=== PATIENT | male | born 1970 | race Caucasian/White ===

== ENCOUNTER 2023-07-27 20:01 | Observation (INO) ==
--- OUTSIDE RECORDS SUMMARY | 2023-07-27 20:07 | External Medical Summary | Summary of Care ---
Author Name Unknown Organization [facility] Address [address] [place] [address] Phone [phone] Care Team Providers Care Labor Relations Teacher Name Role Phone Salas Ring MD Primary Care Provider + Reason for Visit * Reason Onset Date Comments Medication Refill 05/21/2023 Encounter Details Date Type Department Care Team (Late st Contact Info) Description 05/21/2023 Refill Family [facility] [address] [facility] [address] Salas Ring MD [address] [place] [address] Allergies No known active allergiesdocumented as of this encounter (statuses as of 05/21/2023) Medications Medication Sig Dispensed Refills Start Date End Date Status CENTRUM PO TABS one tablet daily 0 Act sergei Aspirin 81 MG Oral Tablet Chewable Take by mouth 1 Tablet in the morning. With food.. 100 Tablet 5 06/23/2021 Active hydrOXYzine HCl 25 MG Oral TabletIndications :ZO (generalized anxiety disorder) take 1 tablet by mouth three times a day if needed for anxiety 40 Tablet 2 04/09/2022 Active Triamcinolone Acetonide 0.1 % External Cream (Aristocort)Indic ations:Rash and nonspecific skin eruption Apply topically to affected area 2 times a day. To affected area. 80 g 3 05/09/2022 Active Additional Information Patient not taking.Reported on 09/03/2022 Colchicine 0.6 MG Oral Tablet (Colcrys)Indicati ons:Gout Two tablets at onset of gout attack, repeat one hour later if needed 12 Tablet 1 05/16/2022 Active Simvastatin 20 MG Oral Tablet (Zocor)Indication s:Dyslipidemia, goal LDL below 160 Take 1 Tablet by mouth at bedtime. 90 Tablet 3 07/06/2022 Active Meloxicam 7.5 MG Oral Tablet (Mobic)Indication s:Tophaceous gout Take 1 Tablet by mouth in the morning. For 1month for gout prevention. 30 Tablet 0 07/06/2022 Active predniSONE 20 MG Oral Tablet (Deltasone)Indica tions:Left elbow pain Take 3 tabs for 3 days, 2 tabs for 3 days, 1 tab for 3 days, 1/2 tab for 3 days 20 Tablet 0 09/03/2022 Active Escitalopram Oxalate 10 MG Oral Tablet (Lexapro)Indicati ons:ZO (generalized anxiety disorder) take 1 tablet by mouth every morning 30 Tablet 5 11/19/2022 Active Lisinopril 20 MG Oral Tablet (Prinivil)Indicat ions:HTN, goal below 130/80 Take 1 Tablet by mouth at bedtime. 90 Tablet 3 04/07/2023 Active amLODIPine Besylate 5 MG Oral Tablet (Norvasc) Take 1 Tablet by mouth in the morning. 100 Tablet 3 05/21/2023 Active amLODIPine Besylate 5 MG Oral Tablet (Norvasc) Take 1 Tablet by mouth in the morning. 100 Tablet 3 07/06/2022 4 Discontinue d(Refill) Allopurinol 100 MG Oral Tablet (Zyloprim)Indicat ions:Tophaceous gout take 2 tablet by mouth every morning 60 Tablet 5 12/20/2022 4 Discontinue d(Refill) documented as of this encounter (statuses as of 05/21/2023) Active Problems Problem Noted Date Diagnosed Date ZO (generalized anxiety disorder) 12/04/2021 Well adult exam 04/15/2014 Overview: 06/19 stress echo WNL. 03/20 colon+ tubular adenoma haritha 6y 2018-friend, suicide. Found body---started [employer] 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) 07/25/2020 12/25/2020 Overview: Feb 2020 Prediabetes 10/11/2019 07/12/2021 Overview: Per Prediabetes protocol Ganglion cyst 06/11/2012 12/25/2020 Overview: Right wrist Thoracic outlet syndrome 05/26/201207/2017 Carpal tunnel syndrome 04/30/201206/21 Overview: 04/29/12-EMG-left -mild HTN, goal below 130/80 06/21 Malaise and fatigue 09/03/19 18 documented as of this encounter (statuses as of 05/21/2023) Immunizations Name Administration Dates Next Due COVID-19 mRNA, LNP-s, No Pre serve, 2-Dose Series (Moderna) 06/29/2020 HEP A - Hepatitis A (Adult > 18 yrs) 12/06/2021 Hepatitis B, 20+ yrs 12/31/2021 Seasonal Influenza, PF, 6 M & above, IM , (FluLaval or Fluzone) 05/29/2021,01/28/2020 Seasonal Influenza, Quadrivalent, No Preserve, I M 01/24/2015 Seasonal Influenza, Split, IIV3, With Preserve, Inj 12/14/2011 TDAP (age 10 and older)(Boostrix) 04/17/2023,10/2012 Typhoid VICPs Parenteral, 2 years and above (Typhim ) 12/06/2021 Zoster Vaccine Recombinant (Shingrix) 09/28/2021 ,05/29/2021 documented as of this encounter Social History Tobacco Use Types Packs/Day Years Used Date Smoking Tobacco: Never Passive Smoke Exposure: Never Smokeless Tobacco: Former Chew Comments:quit 2005 Alcohol Use Standard Drinks/Week Comments Yes 0 (1 standard drink = 0.6 oz pur e alcohol) 6 pack on weekends PHQ-2 Answer Date Recorded PHQ Adult Total Score 0 07/06/2022 Hunger Vital Sign Answer Date Recorded Within the past 12 months, y ou worried that your food would run out before you got the money to buy more. Never true 07/07/19 23 Within the past 12 months, t he food you bought just didn't last and you didn't have money to get more. Never true 07/06/2022 Sex and Gender Information Value Date Recorded Sex Assigned at Male 07/25/2020 12:54 PM EDT Gender Identity Male 07/25/2020 12:54 PM EDT Sexual Orientation Straight 07/25/2020 12 :54 PM EDT Job Start Date Occupation Industry Not on file Not on file Not on file documented as of this encounter Miscellaneous Notes * Telephone Encounter - Salas Ring MD - 05/21/2023 10:44 PM EST Signed Prescriptions: Disp Refills amLODIPine Besylate 5 MG Oral Tablet (Norv*100 Ta*3 Sig: Take 1 Tablet by mouth in the morning. Authorizing Provider: SALAS RING * Telephone Encounter - Flaquita Stone LPN - 05/21/2023 8:21 AM ESTPending Prescriptions: Disp Refills amLODIPine Besylate 5 MG Oral Tablet (Norv*100 Ta*3 Sig: Take 1 Tablet by mouth in the morning. * Telephone Encounter - Lola Foy OSA - 05/21/2023 7:07 AM EST Did you pend patient's preferred pharmacy and medication before forwarding?yes Pharmacy: [id number] [facility] Pending Prescriptions: Disp Refills amLODIPine Besylate 5 MG Oral Tablet (Nor*100 Ta*3 Sig: Take 1 Tablet by mouth in the morning. Last Visit: 09/03/2022 (in office), 08/13/2021 (telemedicine) Next Visit: 07/09/2023 If no future appointments scheduled, and last appointment is greater than a year ago, please schedule patient for a follow-up appointment Last date the medication was ordered: 07.06.22 Is this request for a controlled substance?No 90 day refill request Urine Drug Screen:No results found for this or any previous visit. Patient Phone Numbers Labs: Lab Results Component Value Date/Time CREAT 1.07 08/08/2022 12:00 AM CREAT 1.2 09/29/2019 07:34 AM POTASSIUM 4.3 08/08/2022 12:00 AM POTASSIUM 4.4 09/29/2019 07:34 AM TSH 2.00 12/11/2020 12:00 AM TSH 3.39 06/11/2012 09:24 AM LDLCALC 56 06/23/2021 12:00 AM LDLCALC UNINTERPRETABLE RESULT 09/14/2018 10:46 AM LDLDIRECT 89 09/14/2018 10:46 AM ALT 32 06/23/2021 12:00 AM ALT 40 09/14/2018 10:46 AM HGBA1C 5.3 11/27/2020 12:00 AM HGBA1C 5.9 (H) 09/29/2019 07:34 AM documented in this encounter Plan of Treatment Upcoming Encounters Date Type Department Care Team (Late st Contact Info) Description 07/09/2023 10:00 AM EDT Office Visit Family Practice [facility] [address] [address] Salas Ring MD [address] [place] [address] Scheduled Procedures Name Priority Associated Diagnoses Date/Ti me COLONOSCOPY FLEXIBLE PROXIMA L DIAGNOSTIC Recall History of colonic polyps Health Maintenance Due Date Last Done Comments HIV Screening 1986 Hepatitis C Screening 1989 Hepatitis B (2 of 3 - 19+ 3-dose series) 01/28/2022 12/31/2021 Influenza Vaccine (FLU shot) (#1) 2022 05/29/2021, 01/28/2020, 01/24/2015, Additional history exists Depression Screening 07/07/2023 07/06/2022 GFR 08/09/2023 08/08/2022, 05/30, 11/27/2020, Additional history exists Albumin/Creatinine Ratio 08/08/2025 08/08/2022 Diabetes Screening 08/08/2025 08/08/2022, 0 06/23/2021, 11/27/2020, Additional history exists COLONOSCOPY-EVERY 5 YRS AGES 18-100 03/06/2026 03/06/2021, 03/06/2021 Lipid Panel 06/23/2026 06/23/2021, 10/31, 09/14/2018, Additional history exists DTaP,Tdap,and Td Vaccines (3 - Td or Tdap) 04/17/2033 04/17/2023, 05/08/2012 COVID-19 Vaccine Discontinued 06/29/2020 Colonoscopy Discontinued 03/06/2021, 03/06/2021 Colorectal Cancer Screening Discontinued Zoster Vaccines Completed 09/28/2021, 05/29/2021 Cologuard Discontinued Fecal Occult Blood Test Discontinued GARDASIL-HPV IMMUNIZATION SERIES Aged Out No longer eligible based on patient's age to complete this topic MENINGOCOCCAL (MENACTRA/MENVEO) Aged Out No longer eligible based on patient's age to complete this topic Pneumococcal Vaccine: Pediatrics (0 to 5 Years) and At-Risk Patients (6 to 64 Years) Aged Out No longer eligible based on patient's age to complete this topic Sigmoidoscopy Discontinued documented as of this encounter Medical Devices Not on filedocumented as of this encounter Care Teams Labor Relations Teacher Relationship Specialty Start Date End Date Salas Ring MD [address] [place] [address] PCP - General Family Medicine 07/01/14 documented as of this encounter
--- OUTSIDE RECORDS SUMMARY | 2023-07-27 20:07 | External Medical Summary | Summary of Care ---
Author Name Unknown Organization [facility] Address [address] [place] [address] Phone [phone] Care Team Providers Care Web Development Consultant Name Role Phone Salas Ring MD Primary Care Provider + Reason for Visit * Reason Onset Date Comments Medication Refill 06/27/2023 Encounter Details Date Type Department Care Team (Late st Contact Info) Description 06/27/2023 Refill Family Practice [facility] [address] [facility] [address] Salas Ring MD [address] [facility] [place] [id number] Dyslipidemia, goal LDL below 160 Allergies No known active allergiesdocumented as of this encounter (statuses as of 06/27/2023) Medications Medication Sig Dispensed Refills Start Date [...] if needed 12 Tablet 1 05/16/2022 Active Meloxicam 7.5 MG Oral Tablet (Mobic)Indication s:Tophaceous gout Take 1 Tablet by mouth in the morning. For 1month for gout prevention. 30 Tablet 0 07/06/2022 Active predniSONE 20 MG Oral Tablet (Deltasone)Indica tions:Left elbow pain Take 3 tabs for 3 days, 2 tabs for 3 days, 1 tab for 3 days, 1/2 tab for 3 days 20 Tablet 0 09/03/2022 Active Lisinopril 20 MG Oral Tablet (Prinivil)Indicat ions:HTN, goal below 130/80 Take 1 Tablet by mouth at bedtime. 90 Tablet 3 04/07/2023 Active amLODIPine Besylate 5 MG Oral Tablet (Norvasc) Take 1 Tablet by mouth in the morning. 100 Tablet 3 05/21/2023 Active Allopurinol 100 MG Oral Tablet (Zyloprim)Indicat ions:Tophaceous gout Take 2 Tablets by mouth in the morning. 60 Tablet 11 06/05/2023 Active Escitalopram Oxalate 10 MG Oral Tablet (Lexapro)Indicati ons:ZO (generalized anxiety disorder) Take 1 Tablet by mouth in the morning. In the morning.. 30 Tablet 5 06/06/2023 Active Simvastatin 20 MG Oral Tablet (Zocor)Indication s:Dyslipidemia, goal LDL below 160 Take 1 Tablet by mouth at bedtime. 90 Tablet 3 06/27/2023 Active Simvastatin 20 MG Oral Tablet (Zocor)Indication s:Dyslipidemia, goal LDL below 160 Take 1 Tablet by mouth at bedtime. 90 Tablet 3 07/06/2022 4 Discontinue d(Refill) documented as of this encounter (statuses as of 06/27/2023) Active Problems Problem Noted Date Diagnosed Date ZO (generalized anxiety disorder) 12/04/2021 Well adult exam 04/15/2014 Overview: 06/19 stress echo WNL. 03/20 colon+ tubular adenoma haritha 6y 2017-friend, suicide. Found body---started [employer] 10/07 [facility] EKG scanned Gout 04/21/2012 HTN, goal below 130/80 NAFLD (nonalcoholic fatty liver disease) Poor short term memory documented as of this encounter (statuses as of 06/27/2023) Resolved Problems Problem Noted Date Diagnosed Date [...] as of this encounter (statuses as of 06/27/2023) Immunizations Name Administration Dates Next Due COVID-19 [...] encounter Miscellaneous Notes * Telephone Encounter - Saals Ring MD - 06/27/2023 10:35 PM EDT Signed Prescriptions: Disp Refills Simvastatin 20 MG Oral Tablet (Zocor) 90 Tab*3 Sig: Take 1 Tablet by mouth at bedtime. Authorizing Provider: SALAS RING * Telephone Encounter - Natalia Matute MED ASSIST - 06/27/2023 1:43 PM EDT Pending Prescriptions: Disp Refills Simvastatin 20 MG Oral Tablet (Zocor) 90 Tab*3 Sig: Take 1 Tablet by mouth at bedtime. * Telephone Encounter - Lola Foy OSA - 06/27/2023 1:35 PM EDT Did you pend patient's preferred pharmacy and medication before forwarding?yes Pharmacy: [id number] [facility] Pending Prescriptions: Disp Refills Simvastatin 20 MG Oral Tablet (Zocor) 90 Tab*3 Sig: Take 1 Tablet by mouth at bedtime. Last Visit: 09/03/2022 (in office), 08/13/2021 (telemedicine) Next Visit: 07/09/2023 If no future appointments scheduled, and last appointment is greater than a year ago, please schedule patient for a follow-up appointment Last date the medication was ordered: 4.8.23 Is this request for a controlled substance?No [...] 07/09/2023 10:00 AM EDT Office Visit Family [facility] [address] [facility] [place] [address] Salas Ring MD [address] [place] [address] Scheduled Procedures Name Priority Associated Diagnoses Date/Ti [...] Not on filedocumented as of this encounter Visit Diagnoses Diagnosis Dyslipidemia, goal LDL below 160 Other and unspecified hyperlipidemia documented in this encounter Care Teams Web Development Consultant Relationship Specialty Start Date End Date Salas Ring MD [address] [place] [address] PCP - General Family Medicine 07/01/14 documented as of this encounter
--- OUTSIDE RECORDS SUMMARY | 2023-07-27 20:07 | External Medical Summary | Summary of Care ---
Author Name Unknown Organization [facility] Address [address] [place] [address] Phone [phone] Care Team Providers Care Direct Support Worker Name Role Phone Salas Ring MD Primary Care Provider + Reason for Visit * Reason Onset Date Comments Medication Refill 05/21/2023 Encounter Details Date Type Department Care Team (Late st Contact Info) Description 05/21/2023 [facility]ill [facility] [address] [facility] [address] Salas Ring MD [address] [place] [address] Tophaceous gout Allergies No known active allergiesdocumented as of [...] mouth in the morning. 60 Tablet 11 05/21/2023 Active Allopurinol 100 MG Oral Tablet [...] adenoma haritha 6y 2018-friend, suicide. Found body---started [facility]. 10/07 [facility] EKG scanned Gout 04/21/2012 HTN, goal [...] Encounter - Salas Ring MD - 05/21/2023 10:45 PM EST Signed Prescriptions: Disp Refills Allopurinol 100 MG Oral Tablet (Zyloprim) 60 Tab*11 Sig: Take 2 Tablets by mouth in the morning.Authorizing Provider: SALAS RING * Telephone Encounter - Flaquita Stone LPN - 05/21/2023 8:21 AM ESTPending Prescriptions: Disp Refills Allopurinol 100 MG Oral Tablet (Zyloprim) 60 Tab*5 * Telephone Encounter - Lola Foy OSA - 05/21/2023 7:08 AM EST Did you pend patient's preferred pharmacy and medication before forwarding?yes Pharmacy: [id number] [facility] Pending Prescriptions: Disp Refills Allopurinol 100 MG Oral Tablet (Zyloprim) 60 Tab*5 Last Visit: 09/03/2022 (in office), 08/13/2021 (telemedicine) Next Visit: 07/09/2023 If no future appointments scheduled, and last appointment is greater than a year ago, please schedule patient for a follow-up appointment Last date the medication was ordered: 12.20.22 Is this request for a controlled substance?No 90 day refill request Urine Drug Screen:No results found for this or any previous visit. Patient Phone Numbers [employer] [phone] Labs: Lab Results Component Value Date/Time CREAT [...] 10:00 AM EDT Office Visit [facility] [address] [address] Salas Ring MD [address] [place] [address] Scheduled Procedures Name Priority Associated Diagnoses Date/Ti me COLONOSCOPY FLEXIBLE PROXIMA L DIAGNOSTIC Recall History of colonic polyps Health Maintenance Due Date Last Done Comments HIV Screening 1986 Hepatitis C Screening 1989 Hepatitis B (2 of 3 - 19+ 3-dose series) 01/28/2022 12/31/2021 Influenza Vaccine (FLU shot) (#1) 2022 05/29/2021, 01/28/2020, 01/24/2015, Additional history exists Depression Screening 07/07/2023 07/06/2022 GFR 08/09/2023 08/08/2022, 0308/2021, 11/27/2020, Additional history exists Albumin/Creatinine Ratio 08/08/2025 [...] as of this encounter Visit Diagnoses Diagnosis 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
--- OUTSIDE RECORDS SUMMARY | 2023-07-27 20:07 | External Medical Summary | Summary of Care ---
Author Name Unknown Organization [facility] Address [address] [place] [address] Phone [phone] Care Team Providers Care Geosciences Associate Professor Name Role Phone Salas Tobias MD Primary Care Provider + Reason for Visit * Reason Comments Physical-Exam Yearly physical Encounter Details Date Type Department Care Team (Late st Contact Info) Description 07/09/2023 10:00 AM EDT [facility] Visit [facility] [address] [place] [address] Salas Tobias MD [address] [place] [address] Well adult exam*; ZO (generalized anxiety disorder); Lipid screening; Screening for diabetes mellitus; 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 With food.. 100 Tablet 5 06/23/2021 Active Colchicine 0.6 MG Oral Tablet (Colcrys)Indicati ons:Gout Two tablets at onset of gout attack, repeat one hour later if needed 12 Tablet 1 05/16/2022 Active Lisinopril 20 MG Oral Tablet (Prinivil)Indicat ions:HTN, goal below 130/80 Take 1 Tablet by mouth at bedtime. 90 Tablet 3 04/07/2023 Active Allopurinol 100 MG Oral Tablet (Zyloprim)Indicat [...] at bedtime. 90 Tablet 3 06/27/2023 Active hydrOXYzine HCl 25 MG Oral TabletIndications :ZO (generalized anxiety disorder) take 1 tablet by mouth three times a day if needed for anxiety 40 Tablet 2 07/09/2023 Active amLODIPine Besylate 2.5 MG Oral Tablet (Norvasc)Indicati ons:HTN, goal below 130/80 Take 1 Tablet by mouth in the morning. 90 Tablet 3 07/09/2023 Active hydrOXYzine HCl 25 MG Oral TabletIndications :ZO (generalized anxiety disorder) take 1 tablet by mouth three times a day if needed for anxiety 40 Tablet 2 04/09/2022 07/09/2023 Discontinue d(Refill) Triamcinolone Acetonide 0.1 % External Cream (Aristocort)Indic ations:Rash and nonspecific skin eruption Apply topically to affected area 2 times a day. To affected area. 80 g 3 05/09/2022 07/09/2023 Discontinue d(Medicatio n List Clean Up) Meloxicam 7.5 MG Oral Tablet (Mobic)Indication s:Tophaceous gout Take 1 Tablet by mouth in the morning. For 1month for gout prevention. 30 Tablet 0 07/06/2022 07/09/2023 Discontinue d(Medicatio n List Clean Up) predniSONE 20 MG Oral Tablet (Deltasone)Indica tions:Left elbow pain Take 3 tabs for 3 days, 2 tabs for 3 days, 1 tab for 3 days, 1/2 tab for 3 days 20 Tablet 0 09/03/2022 07/09/2023 Discontinue d(Medicatio n List Clean Up) amLODIPine Besylate 5 MG Oral Tablet (Norvasc) Take 1 Tablet by mouth in the morning. 100 Tablet 3 05/21/2023 07/09/2023 Discontinue d(Medicatio n/Dose Changed) documented as of this encounter (statuses as of 07/09/2023) Active Problems Problem Noted Date Diagnosed Date ZO (generalized anxiety disorder) 12/04/2021 Well adult exam 04/15/2014 Overview: 06/19 stress echo WNL. 03/20 colon+ tubular adenoma haritha 6y 2017-friend, suicide. Found body---started [employer]. 10/07 [facility] EKG scanned Gout 04/21/2012 HTN, goal below 130/80 NAFLD (nonalcoholic fatty liver disease) Poor short term memory documented as of this encounter (statuses as of 07/09/2023) Resolved Problems Problem Noted Date Diagnosed Date [...] as of this encounter (statuses as of 07/09/2023) Immunizations Name Administration Dates Next Due COVID-19 [...] Smoke Exposure: Never Smokeless Tobacco: Former Chew Tobacco Cessation:Counseling Given: Not Answered Comments:quit 2005 Alcohol Use Standard Drinks/Week Comments [...] on file documented as of this encounter Last Filed Vital Signs Vital Sign Reading Time Taken Comments Blood Pressure 112/74 07/09/2023 10:09 AM EDT Pulse 69 07/09/2023 10:09 AM EDT Temperature 36.2 C (97.1 F) 07/09/2023 10:09 AM E DT Respiratory Rate 16 07/09/2023 10:09 AM EDT Oxygen Saturation 96% 07/09/2023 10:09 AM EDT Inhaled Oxygen Concentration - - Weight 107.6 kg (237 lb 5 oz) 07/09/2023 10:09 A M EDT Height 177.8 cm (5' 10") 07/09/2023 10:09 AM EDT Body Mass Index 34.05 07/09/2023 10:09 AM EDT documented in this encounter Progress Notes * Salas Tobias MD - 07/09/2023 10:48 AM EDT SUBJECTIVE: Gilbert Andrew is a 53 year old male here for Physical-Exam (Yearly physical) . Here for CPE Notes some inc edema b/l ankles occ since on amlodipine 5mg. Feels well otherwise. No fever, chills, chest pain, shortness of breath, headache, nausea, vomit, diarrhea, constipation or vision changes Finishing house, has his event coming up in August. Did veterans retreat, doing well w/breathing exercises. ROS: Negative except above. 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 COLONOSCOPY, DIAGNOSTIC (RECTUM) 03/06/2021 adenomatous polyp, repeat 5 yrs / COLONOSCOPY FLEXIBLE PROXIMAL DIAGNOSTIC performed by Petey Chavez MD at ENDOS[facility] SHOULDER ARTHROSCOPY [facility] 03/31/2006 [facility] right arcromioplasty, labrum repair Social History Socioeconomic History Marital status: Spouse name: Not on file Number of children: 2 Years of education: Not on file Highest education level: Not on file Occupational History Occupation: POSITION DESCRIPTION MANAGER Employer: [employer] Comment: computer Tobacco Use Smoking status: Never Passive exposure: Never Smokeless tobacco: Former Types: Chew Tobacco comments: quit 2005 Substance and Sexual Activity Alcohol use: Yes Comment: 6 pack on weekends Drug use: No Sexual activity: Yes control/protection: Surgical Comment: , 26 & 23 YO kids s/p vasectomy Other Topics Concern Not on file Social History Narrative 2019 bought farm/ building house. [employer]---helps run---supports vets & kids. Does [employer] last waxer yearly. Social Determinants of Health Financial Resource Strain: Not on file Food Insecurity: No Food Insecurity (07/06/2022) Hunger Vital Sign Worried About Running Out of Food in the Last Year: Never true Ran Out of Food in the Last Year: Never true Transportation Needs: Not on file Physical Activity: Not on file Stress: Not on file Social Connections: Not on file Intimate Partner Violence: Not on file Housing Stability: Not on file Family History Problem Relation Age of Onset No Past Hx Mother Heart Disorder Father 70 x2. 06/20 (covid, spine infection etc) Stroke Father 06/2020 No Past Hx Brother x4 (1 w/depression) Current Outpatient Medications Medication Sig Dispense Refill CENTRUM PO TABS one tablet daily Aspirin 81 MG Oral Tablet Chewable Take by mouth 1 Tablet in the morning. With food.. 100 Tablet 5 Colchicine 0.6 MG Oral Tablet (Colcrys) Two tablets at onset of gout attack, repeat one hour later if needed 12 Tablet 1 Lisinopril 20 MG Oral Tablet (Prinivil) Take 1 Tablet by mouth at bedtime. 90 Tablet 3 Allopurinol 100 MG Oral Tablet (Zyloprim) Take 2 Tablets by mouth in the morning. 60 Tablet 11 Escitalopram Oxalate 10 MG Oral Tablet (Lexapro) Take 1 Tablet by mouth in the morning. In the morning.. 30 Tablet 5 Simvastatin 20 MG Oral Tablet (Zocor) Take 1 Tablet by mouth at bedtime. 90 Tablet 3 hydrOXYzine HCl 25 MG Oral Tablet take 1 tablet by mouth three times a day if needed for anxiety 40Tablet 2 amLODIPine Besylate 2.5 MG Oral Tablet (Norvasc) Take 1 Tablet by mouth in the morning. 90 Tablet 3 No current facility-administered medications for this visit. Physical: BP 112/74 | Pulse 69 | Temp 36.2 C (97.1 F) (Tympanic) | Resp 16 | Ht 1.778 m (5' 10") | Wt 107.6 kg (237 lb 5 oz) | SpO2 96% | BMI 34.05 kg/m | BSA 2.31 m General-No apparent Distress Head, Eyes, Ears, Nose, Throat--Normocephalic, atraumatic Neck-Supple Lymph-no lymphadenopathy Lungs-Clear to Auscultation bilaterally Cardiovascular--Regular rate & Rhythm, +s1, s2, no murmur Abdomen-soft, nontender, nondistended + bowel sounds Extremities--no edema Neuro-alert & oriented x3 (Z00.00) Well adult exam (primary encounter diagnosis) Plan: counseled on diet/exercise Shots UTD Labs reviewed/ordered Colon UTD PSA due at 56 (F41.1) ZO (generalized anxiety disorder) Plan: hydrOXYzine HCl 25 MG Oral Tablet (Z13.220) Lipid screening Plan: LIPID PANEL WITH DIRECT LDL IF TG IS HIGH (Z13.1) Screening for diabetes mellitus Plan: (M1A.0710) 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 As such, there may be misspellings, word substitutions, or other variations that should not change the essence of the clinical content of this encounter note.If there is need for further clarification, please direct questions to the provider listed above.) Salas Tobias MD documented in this encounter Plan of Treatment Upcoming Encounters Date Type Department Care Team (Late st Contact Info) Description 07/09/2024 9:40 AM EDT Office Visit Family Practice [facility] [address] [place] [address] Salas Tobias MD [address] [place] [address] Scheduled Orders Name Type Priority Associated Diagnoses Orde r Schedule BASIC METABOLIC PANEL Lab Routine HTN, goal below 130/80 Ordered: 07/09/2023 LIPID PANEL WITH DIRECT LDL IF TG IS HIGH Lab Routine Lipid screening Ordered: 07/09/2023 URIC ACID Lab Routine 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 Ordered: 07/09/2023 Scheduled Procedures Name Priority Associated Diagnoses Date/Ti me COLONOSCOPY FLEXIBLE PROXIMA L DIAGNOSTIC Recall History of colonic polyps Health Maintenance Due Date Last Done Comments HIV Screening 1986 Hepatitis C Screening 1989 Hepatitis B (2 of 3 - 19+ 3-dose series) 01/28/2022 12/31/2021 GFR 08/09/2023 08/08/2022, 05/30, 11/27/2020, Additional history exists Influenza Vaccine (FLU shot) (Season Ended) 2023 05/29/2021, 01/28/2020, 01/24/2015, Additional history exists Depression Screening 07/08/2024 07/09/2023 Albumin/Creatinine Ratio 08/08/2025 08/08/2022 Diabetes Screening 08/08/2025 [...] as of this encounter Visit Diagnoses Diagnosis Well adult exam- Primary Routine general medical examination at a health care facility ZO (generalized anxiety disorder) Generalized anxiety disorder Lipid screening Screening for lipoid disorders Screening for diabetes mellitus 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
--- OUTSIDE RECORDS SUMMARY | 2023-07-27 20:07 | External Medical Summary | Summary of Care ---
Author Name Unknown Organization [facility] Address [address] [place] [address] Phone [phone] Care Team Providers Care Roller Helper Name Role Phone Salas Tobias MD Primary Care Provider + Reason for Visit * Reason Onset Date Comments Order Request 04/14/2023 Encounter Details Date Type Department Care Team (Late st Contact Info) Description 04/14/2023 Telephone Family Practice [facility] [address] [facility] [place] [address] Salas Tobias MD [address] [facility] [place] [address] Order Request Allergies No known active allergiesdocumented as of this encounter (statuses as of 07/14/2023) Medications Medication Sig Dispensed Refills Start Date [...] at bedtime. 90 Tablet 3 04/07/2023 Active hydrOXYzine HCl 25 MG Oral TabletIndications [...] in the morning. 100 Tablet 3 07/06/2022 05/21/2023 Discontinue d(Refill) Simvastatin 20 MG Oral Tablet (Zocor)Indication s:Dyslipidemia, goal LDL below 160 Take 1 Tablet by mouth at bedtime. 90 Tablet 3 07/06/2022 06/27/2023 Discontinue d(Refill) Meloxicam 7.5 MG Oral Tablet (Mobic)Indication s:Tophaceous [...] 07/09/2023 Discontinue d(Medicatio n List Clean Up) Escitalopram Oxalate 10 MG Oral Tablet (Lexapro)Indicati ons:ZO (generalized anxiety disorder) take 1 tablet by mouth every morning 30 Tablet 5 11/19/2022 06/05/2023 Discontinue d(Refill) Allopurinol 100 MG Oral Tablet (Zyloprim)Indicat ions:Tophaceous gout take 2 tablet by mouth every morning 60 Tablet 5 12/20/2022 05/21/2023 Discontinue d(Refill) documented as of this encounter (statuses as of 07/14/2023) Active Problems Problem Noted Date Diagnosed Date ZO (generalized anxiety disorder) 12/04/2021 Well adult exam 04/15/2014 Overview: 06/19 stress echo WNL. 12/21 colon+ tubular adenoma haritha 6y 2018-friend, suicide. Found body---started [employer]. 10/07 [facility] EKG scanned Gout 04/21/2012 HTN, goal below 130/80 NAFLD (nonalcoholic fatty liver disease) Poor short term memory documented as of this encounter (statuses as of 07/14/2023) Resolved Problems Problem Noted Date Diagnosed Date [...] as of this encounter (statuses as of 07/14/2023) Immunizations Name Administration Dates Next Due COVID-19 [...] Inj 12/14/2011 TDAP (age 10 and older)(Boostrix) 05/08/2012 Typhoid VICPs Parenteral, 2 years and above [...] Date Recorded PHQ Adult Total Score 0 07/09/2023 Hunger Vital Sign Answer Date Recorded Within [...] encounter Miscellaneous Notes * Telephone Encounter - Opal Colunga LPN - 04/15/2023 7:00 AM EST Please set up NV. This vaccine can be ordered in a smartset by the nurse on day of NV. * Telephone Encounter - Seanchemalawanda ArpitaARIANNA - 04/14/2023 3:21 PM EST An order was requested for this patient. Name of Requesting Provider: Gilbert Andrew Order Requested: TDAP vaccine Diagnosis/Reason for Request: [facility] request If order request is for Mammogram: Is the patient having any breast symptoms? N/A Is there a chance of ? N/A Has the patient had any breast problems in the past? NA What location AND department does the patient wish to have their order completed at? Fax Number, if applicable: Call Back Number: [phone] If the caller is not a current patient, please advise the patient to call their current PCP to havethe order's prior to being seen in our office. The patient was informed that our providers would not order anything (medication, labs, etc.) prior to being seen. documented in this encounter Plan of Treatment Upcoming Encounters Date Type Department Care Team (Late st Contact Info) Description 07/09/2024 9:40 AM EDT Office Visit Family [facility] [address] [place] [address] Salas Tobias MD [address] [place] [address] Scheduled Procedures Name Priority Associated Diagnoses Date/Ti [...] filedocumented as of this encounter Care Teams Roller Helper Relationship Specialty Start Date End Date Salas Tobias MD [address] [place] [address] PCP - General Family Medicine 07/01/14 documented as of this encounter
--- OUTSIDE RECORDS SUMMARY | 2023-07-27 20:07 | External Medical Summary | Summary of Care ---
Author Name Unknown Organization [facility] Address [address] [place] [address] Phone [phone] Care Team Providers Care Director Clinical Operations Name Role Phone Salas Tobias MD Primary Care Provider + Reason for Visit * Reason Onset Date Comments MyCode Consent 07/09/2023 Encounter Details Date Type Department Care Team (Late st Contact Info) Description 07/09/2023 Orders Only Outcomes Research Department [address] [place] [address] Abbey Drake CHRA MyCode Research Other*[id number]* Allergies No known active allergiesdocumented as of [...] for anxiety 40 Tablet 2 04/09/2022 Active Colchicine 0.6 MG Oral Tablet (Colcrys)Indicati [...] at bedtime. 90 Tablet 3 06/27/2023 Active Triamcinolone Acetonide 0.1 % External Cream [...] 07/09/2023 Discontinue d(Medicatio n List Clean Up) documented as of this encounter (statuses as of 07/09/2023) Active Problems Problem Noted Date Diagnosed Date ZO (generalized anxiety disorder) 12/04/2021 Well adult exam 04/15/2014 Overview: 06/19 stress echo WNL. 03/20 colon+ tubular adenoma haritha 6y 2018-friend, suicide. Found body---started mental health [place]. 10/07 [facility] EKG scanned Gout 04/21/2012 HTN, [...] on file documented as of this encounter Progress Notes * Abbey Drake CHRA - 07/09/2023 10:03 AM EDT ClinicalBoxode Consent Documentation Gilbert Andrew provided consent/authorization to participate in the ClinicalBoxode Project. documented in this encounter Plan of Treatment Scheduled Orders Name Type Priority Associated Diagnoses Orde r Schedule MYCODE INITIAL ADULT Lab Routine MyCode Research Other*[id number] Expected: 07/09/2023 (Approximate), Expires: 07/28/2024 Scheduled Procedures Name Priority Associated Diagnoses Date/Ti me COLONOSCOPY FLEXIBLE PROXIMA L DIAGNOSTIC Recall History of colonic polyps Health Maintenance Due Date Last Done Comments HIV Screening 1986 Hepatitis C Screening 1989 Hepatitis B (2 of 3 - 19+ 3-dose series) 01/28/2022 12/31/2021 GFR 08/09/2023 08/08/2022, 0308/2021, 11/27/2020, Additional history exists Influenza Vaccine (FLU shot) (Season Ended) 2023 05/29/2021, 01/28/2020, 01/24/2015, Additional history exists Depression Screening 07/08/2024 07/09/2023, 07/07/19 23 Albumin/Creatinine Ratio 08/08/2025 08/08/2022 Diabetes Screening 08/08/2025 08/08/2022, 0 06/23/2021, 11/27/2020, Additional history exists COLONOSCOPY-EVERY 5 YRS AGES 18-100 03/06/2026 03/06/2021, 03/06/2021 Lipid Panel 06/23/2026 06/23/2021, 08, 09/14/2018, Additional history exists DTaP,Tdap,and Td Vaccines [...] as of this encounter Visit Diagnoses Diagnosis MyCode Research Other*[id number]- Primary documented in this encounter Care Teams Director Clinical Operations Relationship Specialty Start Date End Date Salas Tobias MD [address] [place] [address] PCP - General Family Medicine 07/01/14 documented as of this encounter
--- OUTSIDE RECORDS SUMMARY | 2023-07-27 20:07 | External Medical Summary | Summary of Care ---
Author Name Unknown Organization [facility] Address [address] [facility] [place] [place] [address] Phone [phone] Care Team Providers Care Professor Of Latin American Studies Name Role Phone Salas Ring MD Primary Care Provider + Reason for Visit * Reason Onset Date Comments Medication Refill 06/05/2023 Encounter Details Date Type Department Care Team (Late st Contact Info) Description 06/05/2023 Refill Family [facility] [address] [facility] [place] [address] Aaron Gannon MD [address] [place] [id number] ZO (generalized anxiety disorder) Allergies No known active allergiesdocumented as of this encounter (statuses as of 06/06/2023) Medications Medication Sig Dispensed Refills Start Date [...] the morning.. 30 Tablet 5 06/06/2023 Active Escitalopram Oxalate 10 MG Oral Tablet (Lexapro)Indicati ons:ZO (generalized anxiety disorder) take 1 tablet by mouth every morning 30 Tablet 5 11/19/2022 4 Discontinue d(Refill) documented as of this encounter (statuses as of 06/06/2023) Active Problems Problem Noted Date Diagnosed Date ZO (generalized anxiety disorder) 12/04/2021 Well adult exam 04/15/2014 Overview: 06/19 stress echo WNL. 03/20 colon+ tubular adenoma haritha 6y 2017-friend, suicide. Found body---started [employer]. 10/07 [facility] EKG scanned Gout 04/21/2012 HTN, goal below 130/80 NAFLD (nonalcoholic fatty liver disease) Poor short term memory documented as of this encounter (statuses as of 06/06/2023) Resolved Problems Problem Noted Date Diagnosed Date [...] as of this encounter (statuses as of 06/06/2023) Immunizations Name Administration Dates Next Due COVID-19 [...] encounter Miscellaneous Notes * Telephone Encounter - Rickie Anderson [facility] - 06/06/2023 12:45 PM EST Signed Prescriptions: Disp Refills Escitalopram Oxalate 10 MG Oral Tablet (Le*30 Tab*5 Sig: Take 1 Tablet by mouth in the morning. In the morning..Authorizing Provider: SALAS RINGOrderlashawn User: RICKIE ANDERSON documented in this encounter Plan of Treatment Upcoming Encounters Date Type Department Care Team (Late st Contact Info) Description 07/09/2023 10:00 AM EDT Office Visit Family [facility] [address] [place] [address] Salas Ring MD [address] [place] [address] Scheduled Procedures Name Priority Associated Diagnoses Date/Ti [...] as of this encounter Visit Diagnoses Diagnosis ZO (generalized anxiety disorder) Generalized anxiety disorder documented in this encounter Care Teams Professor Of Latin American Studies Relationship Specialty Start Date End Date Salas Ring MD [address] [place] [address] PCP - General Family Medicine 07/01/14 documented as of this encounter
--- OUTSIDE RECORDS SUMMARY | 2023-07-27 20:07 | External Medical Summary | Summary of Care ---
Author Name Unknown Organization [facility] Address [address] [place] [address] Phone [phone] Care Team Providers Care Management Consultant Name Role Phone Salas Ring MD Primary Care Provider + Reason for Visit * Reason Onset Date Comments Medication Refill 06/05/2023 Encounter Details Date Type Department Care Team (Late st Contact Info) Description 06/05/2023 [facility] [address] [facility] [address] Salas [facility] [address] [facility] [place] [address] Tophaceous gout Allergies No known active allergiesdocumented as of this encounter (statuses as of 06/05/2023) Medications Medication Sig Dispensed Refills Start Date [...] the morning. 60 Tablet 11 06/05/2023 Active Allopurinol 100 MG Oral Tablet (Zyloprim)Indicat ions:Tophaceous gout Take 2 Tablets by mouth in the morning. 60 Tablet 11 05/21/2023 4 Discontinue d(Refill) documented as of this encounter (statuses as of 06/05/2023) Active Problems Problem Noted Date Diagnosed Date ZO (generalized anxiety disorder) 12/04/2021 Well adult exam 04/15/2014 Overview: 06/19 stress echo WNL. 03/20 colon+ tubular adenoma haritha 6y 2018-friend, suicide. Found body---started [employer]. 10/07 [facility] EKG scanned Gout 04/21/2012 HTN, goal below 130/80 NAFLD (nonalcoholic fatty liver disease) Poor short term memory documented as of this encounter (statuses as of 06/05/2023) Resolved Problems Problem Noted Date Diagnosed Date [...] as of this encounter (statuses as of 06/05/2023) Immunizations Name Administration Dates Next Due COVID-19 [...] encounter Miscellaneous Notes * Telephone Encounter - River Vo RPh - 06/05/2023 7:22 PM ESTSigned Prescriptions: Disp Refills Allopurinol 100 MG Oral Tablet (Zyloprim) 60 Tab*11 Sig: Take 2 Tablets by mouth in the morning.Authorizing Provider: SALAS RING User: RIVER VO documented in this encounter Plan of Treatment Upcoming Encounters Date Type Department Care Team (Late st Contact Info) Description 07/09/2023 10:00 AM EDT Office Visit Family Practice [facility] [address] [place] [place] [address] Salas Ring MD [address] [place] [address] Scheduled Procedures Name Priority Associated Diagnoses Date/Ti [...] (tophi) documented in this encounter Care Teams Management Consultant Relationship Specialty Start Date End Date Salas Ring MD [address] [place] [address] PCP - General Family Medicine 07/01/14 documented as of this encounter
--- OUTSIDE RECORDS SUMMARY | 2023-07-27 20:07 | External Medical Summary | Summary of Care ---
Author Name Unknown Organization [facility] Address [address] [place] [address] Phone [phone] Care Team Providers Care Filter Press Tender Head Name Role Phone Salas Ring MD Primary Care Provider + Reason for Visit * Reason Onset Date Comments Medication Refill 04/07/2023 Encounter Details Date Type Department Care Team (Late st Contact Info) Description 04/07/2023 Refill Family Practice [facility] [address] [facility] [place] [address] Salas Ring MD [address] [facility] [place] [id number] HTN, goal below 130/80 Allergies No known active allergiesdocumented as of this encounter (statuses as of 04/07/2023) Medications Medication Sig Dispensed Refills Start Date [...] if needed 12 Tablet 1 05/16/2022 Active amLODIPine Besylate 5 MG Oral Tablet (Norvasc) Take 1 Tablet by mouth in the morning. 100 Tablet 3 07/06/2022 Active Simvastatin 20 MG Oral Tablet (Zocor)Indication [...] every morning 30 Tablet 5 11/19/2022 Active Allopurinol 100 MG Oral Tablet (Zyloprim)Indicat ions:Tophaceous gout take 2 tablet by mouth every morning 60 Tablet 5 12/20/2022 Active Lisinopril 20 MG Oral Tablet (Prinivil)Indicat ions:HTN, goal below 130/80 Take 1 Tablet by mouth at bedtime. 90 Tablet 3 04/07/2023 Active Lisinopril 20 MG Oral Tablet (Prinivil)Indicat ions:HTN, goal below 130/80 Take 1 Tablet by mouth at bedtime. 90 Tablet 3 10/02/2022 4 Discontinue d(Refill) documented as of this encounter (statuses as of 04/07/2023) Active Problems Problem Noted Date Diagnosed Date ZO (generalized anxiety disorder) 12/04/2021 Well adult exam 04/15/2014 Overview: 06/19 stress echo WNL. 03/20 colon+ tubular adenoma haritha 6y 2018-friend, suicide. Found body---started [employer]. 10/07 [facility] EKG scanned Gout 04/21/2012 HTN, goal below 130/80 NAFLD (nonalcoholic fatty liver disease) Poor short term memory documented as of this encounter (statuses as of 04/07/2023) Resolved Problems Problem Noted Date Diagnosed Date [...] as of this encounter (statuses as of 04/07/2023) Immunizations Name Administration Dates Next Due COVID-19 [...] Telephone Encounter - Salas Ring MD - 04/07/2023 11:03 PM EST Signed Prescriptions: Disp Refills Lisinopril 20 MG Oral Tablet (Prinivil) 90 Tab*3 Sig: Take 1 Tablet by mouth at bedtime. Authorizing Provider: SALAS RING * Telephone Encounter - Flaquita Stone LPN - 04/07/2023 2:55 PM ESTPending Prescriptions: Disp Refills Lisinopril 20 MG Oral Tablet (Prinivil) 90 Tab*3 Sig: Take 1 Tablet by mouth at bedtime. * Telephone Encounter - Marcella Alan OSA - 04/07/2023 2:23 PM EST Did you pend patient's preferred pharmacy and medication before forwarding?no Pharmacy: [id number] [facility] Pending Prescriptions: Disp Refills Lisinopril 20 MG Oral Tablet (Prinivil) 90 Tab*3 Sig: Take 1 Tablet by mouth at bedtime. Last Visit: 09/03/2022 (in office), 08/13/2021 (telemedicine) Next Visit: 07/09/2023 If no future appointments scheduled, and last appointment is greater than a year ago, please schedule patient for a follow-up appointment Last date the medication was ordered: 10/02/2022 90 DAY REFILL Is this request for a controlled substance?No Urine Drug Screen:No results found for this or any previous visit. Patient Phone Numbers [employer] [phone] Labs: Lab Results Component Value Date/Time CREAT [...] 10:00 AM EDT Office Visit Family Practice [facility] [address] [id number] Salas Ring MD [address] [place] [address] Scheduled Procedures Name Priority Associated Diagnoses Date/Ti me COLONOSCOPY FLEXIBLE PROXIMA L DIAGNOSTIC Recall History of colonic polyps Health Maintenance Due Date Last Done Comments HIV Screening 1986 Hepatitis C Screening 1989 Hepatitis B (2 of 3 - 19+ 3-dose series) 01/28/2022 12/31/2021 DTaP,Tdap,and Td Vaccines (2 - Td or Tdap) 05/08/2022 05/08/2012 Influenza Vaccine (FLU shot) (#1) 2022 05/29/2021, 01/28/2020, 01/24/2015, Additional history exists Depression Screening 07/07/2023 07/06/2022 GFR 08/09/2023 08/08/2022, 05/30, 11/27/2020, Additional history exists Albumin/Creatinine Ratio 08/08/2025 08/08/2022 Diabetes Screening 08/08/2025 08/08/2022, 0 06/23/2021, 11/27/2020, Additional history exists COLONOSCOPY-EVERY 5 YRS AGES 18-100 03/06/2026 03/06/2021, 03/06/2021 Lipid Panel 06/23/2026 06/23/2021, 10/31, 09/14/2018, Additional history exists COVID-19 Vaccine Discontinued 06/29/2020 Colonoscopy Discontinued 03/06/2021, [...] as of this encounter Visit Diagnoses Diagnosis HTN, goal below 130/80 Unspecified essential hypertension documented in this encounter Care Teams Filter Press Tender Head Relationship Specialty Start Date End Date Salas Ring MD [address] [place] [address] PCP - General Family Medicine 07/01/14 documented as of this encounter
--- OUTSIDE RECORDS SUMMARY | 2023-07-27 20:07 | External Medical Summary | Summary of Care ---
Author Name Unknown Organization [facility] Address [address] [place] [address] Phone [phone] Care Team Providers Care Diving Board Assembler Name Role Phone Salas Tobias MD Primary Care Provider + Reason for Visit * Reason Onset Date Comments Immunizations 04/17/2023 Encounter Details Date Type Department Care Team (Latest Contact Info) Description 04/17/2023 8:50 AM EST Immunization/I njection Ancillary Murphymy [facility] [address] [place] [address] [facility] [address] [place] [address] Need for prophylactic vaccination with tetanus-diphtheria (Td)* Allergies No known active allergiesdocumented as of this encounter (statuses as of 04/17/2023) Medications Medication Sig Dispensed Refills Start Date End Date Status CENTRUM PO TABS one tablet daily 0 Act sergei Aspirin 81 MG Oral Tablet Chewable Take by mouth 1 Tablet in the morning. With food.. 100 Tablet 5 06/23/2021 Active hydrOXYzine HCl 25 MG Oral TabletIndications:G AD (generalized anxiety disorder) take 1 tablet by mouth three times a day if needed for anxiety 40 Tablet 2 04/09/2022 Active Triamcinolone Acetonide 0.1 % External Cream (Aristocort)Indicat ions:Rash and nonspecific skin eruption Apply topically to affected area 2 times a day. To affected area. 80 g 3 05/09/2022 Active Additional Information Patient not taking.Reported on 09/03/2022 Colchicine 0.6 MG Oral Tablet (Colcrys)Indication s:Gout Two tablets at onset of gout attack, repeat one hour later if needed 12 Tablet 1 05/16/2022 Active amLODIPine Besylate 5 MG Oral Tablet (Norvasc) Take 1 Tablet by mouth in the morning. 100 Tablet 3 07/06/2022 Active Simvastatin 20 MG Oral Tablet (Zocor)Indications: Dyslipidemia, goal LDL below 160 Take 1 Tablet by mouth at bedtime. 90 Tablet 3 07/06/2022 Active Meloxicam 7.5 MG Oral Tablet (Mobic)Indications: Tophaceous gout Take 1 Tablet by mouth in the morning. For 1month for gout prevention. 30 Tablet 0 07/06/2022 Active predniSONE 20 MG Oral Tablet (Deltasone)Indicati ons:Left elbow pain Take 3 tabs for 3 days, 2 tabs for 3 days, 1 tab for 3 days, 1/2 tab for 3 days 20 Tablet 0 09/03/2022 Active Escitalopram Oxalate 10 MG Oral Tablet (Lexapro)Indication s:ZO (generalized anxiety disorder) take 1 tablet by mouth every morning 30 Tablet 5 11/19/2022 Active Allopurinol 100 MG Oral Tablet (Zyloprim)Indicatio ns:Tophaceous gout take 2 tablet by mouth every morning 60 Tablet 5 12/20/2022 Active Lisinopril 20 MG Oral Tablet (Prinivil)Indicatio ns:HTN, goal below 130/80 Take 1 Tablet by mouth at bedtime. 90 Tablet 3 04/07/2023 Active documented as of this encounter (statuses as of 04/17/2023) Active Problems Problem Noted Date Diagnosed Date ZO (generalized anxiety disorder) 12/04/2021 Well adult exam 04/15/2014 Overview: 06/19 stress echo WNL. 03/20 colon+ tubular adenoma haritha 6y 2017-friend, suicide. Found body---started [employer]. 10/07 [facility] EKG scanned Gout 04/21/2012 HTN, goal below 130/80 NAFLD (nonalcoholic fatty liver disease) Poor short term memory documented as of this encounter (statuses as of 04/17/2023) Resolved Problems Problem Noted Date Diagnosed Date [...] as of this encounter (statuses as of 04/17/2023) Immunizations Name Administration Dates Next Due COVID-19 [...] on file documented as of this encounter Patient Instructions * Patient Instructions* Desiree Jerez LPN - 04/17/2023 9:02 AM EST ~~PATIENT INSTRUCTIONS FOR Td VACCINE~~ Possible side effects of Td vaccine, (tetanus shot), are usually mild and can include: 1. Soreness or redness at injection site 2. Low grade fever 3. Body aches You may use a fever / pain reducing medication as needed for these symptoms. LET YOUR DOCTOR KNOW IMMEDIATELY IF YOU HAVE DIFFICULTY BREATHING OR SWALLOWING, EXPERIENCE ITCHINGOF FEET OR HANDS, HAVE SWELLING OF EYES, FACE OR INSIDE OF NOSE. documented in this encounter Progress Notes * Desiree Jerez LPN - 04/17/2023 9:01 AM EST Immunization Administration Documentation Time Out Procedure Performed: Yes Patient Identified (Ask Name/Date of ): Yes Does the patient have a fever greater than 101 degrees today? No Patient allergic to latex? No VFC Stock: No Immunization(s) verified: Yes, Immunization Name: DTaP, VIS Sheet(s) given: Yes Verified Side and Site: Yes Verified Shot(s) with Parent(s)/Patient: Yes documented in this encounter Plan of Treatment Upcoming Encounters Date Type Department Care Team (Late st Contact Info) Description 07/09/2023 10:00 AM EDT Office Visit [facility] [address] [phone] Salas Tobias MD [address] [place] [address] Scheduled Procedures Name Priority Associated Diagnoses Date/Ti [...] as of this encounter Visit Diagnoses Diagnosis Need for prophylactic vaccination with tetanus-diphtheria (Td)- Primary documented in this encounter Care Teams Diving Board Assembler Relationship Specialty Start Date End Date Salas Tobias MD [address] [place] [address] PCP - General Family Medicine 07/01/14 documented as of this encounter
[2023-07-27 21:02] LABS: Hemoglobin 14.1 g/dl (14.0-18.0); Mean Corpuscular Hemoglobin 33.2 pg (25.0-34.0); Mean Corpuscular Hgb Conc 35.3 g/dL (32.0-36.0); Mean Corpuscular Volume 94.1 fL (80.0-100.0); Mean Platelet Volume 9.2 fL (9.4-12.4); Platelet Count 191 K/uL (130-400); RDW Coefficient of Variation 12.2 % (11.5-14.5); RDW Standard Deviation 42.5 fL (36.4-46.3); Red Blood Count 4.25 M/uL (4.70-6.10); White Blood Count 7.24 K/ul (4.8-10.8)
[2023-07-27 21:18] LABS: Albumin Globulin Ratio 1.5 (0.9-2); Albumin Level 4.6 gm/dl (3.4-5.0); BUN Creatinine Ratio 15.4 (10-20); Bilirubin,Total 0.7 mg/dl (0.2-1.0); Calcium 9.6 mg/dl (8.6-10.3); Creatinine Clr Calc Pharmacy 104.8 ml/min; Est GFR (African American) 95.2 ml/min; Est GFR (Non-African American) 82.2 ml/min; Magnesium 1.4 mg/dl (1.7-2.4); Total Protein 7.6 gm/dl (6.0-8.3)
[2023-07-27 21:26] LABS: INR 1.1 (0.9-1.1); Partial Thromboplastin Time 27 Seconds (21-31); Prothrombin Time 11.9 Seconds (9.0-12.0)
[2023-07-27 22:05] LABS: Adenovirus PCR Not Detected (NotDetected); Bordetella parapertussis PCR Not Detected (NotDetected); Bordetella pertussis PCR Not Detected (NotDetected); Chlamydia pneumoniae PCR Not Detected (NotDetected); Coronavirus 229E PCR Not Detected (NotDetected); Coronavirus CoV-2 (COVID19)PCR Not Detected (NotDetected); Coronavirus HKU1 PCR Not Detected (NotDetected); Coronavirus NL63 PCR Not Detected (NotDetected); Coronavirus OC43PCR Not Detected (NotDetected); Human Metapneumovirus PCR Not Detected (NotDetected); Influenza A PCR Not Detected (NotDetected); Influenza B PCR Not Detected (NotDetected); Mycoplasma pneumoniae PCR Not Detected (NotDetected); Parainfluenza Virus 1 PCR Not Detected (NotDetected); Parainfluenza Virus 2 PCR Not Detected (NotDetected); Parainfluenza Virus 3 PCR Not Detected (NotDetected); Parainfluenza Virus 4 PCR Not Detected (NotDetected); Respiratory Syncytial VirusPCR Not Detected (NotDetected); Rhinovirus/Enterovirus PCR Not Detected (NotDetected)
[2023-07-27] MEDS: MAGNESIUM SULFATE / D5W 1 GM/100 ML BAG IV SCH (22:41)
[2023-07-27] MEDS: SODIUM CHLORIDE 0.9% 1,000 ML IV ONE (22:44)
[2023-07-27] MEDS: OPTIRAY 320 125ml IV ONE (23:01)
[2023-07-27 23:13] LABS: Troponin I High Sensitivity 7.9 pg/ml (0-20)
--- NOTE | 2023-07-28 00:55 | Emergency Department Note ---
History of Present Illness General Chief complaint: TIA Symptoms Stated complaint: HIGH BP,NUMBNESS L SIDE,GAIT UNSTEADY, DEHYDRATED Time Seen by Provider: 07/27/23 22:28 History of Present Illness This 53-year-old male presents the ER complaining of chest pain and left arm pain and high blood pressure today. Patient states he worked today and his arm and chest and legs were bothering him so checked his blood pressure and noticed it was high. He does take blood pressure medicine as directed. Patient denies fever, chills, dyspnea, numbness, tingling, localized weakness. He does take a cholesterol pill. Home Medications Medication Instructions Recorded Confirmed Type allopurinol 100 mg tablet 200 mg PO HS 03/24/20 07/28/23 History lisinopril 20 mg tablet 20 mg PO HS 03/24/20 07/28/23 History simvastatin 20 mg tablet 20 mg PO HS 03/24/20 07/28/23 History amlodipine 5 mg tablet 5 mg PO HS 07/28/23 07/28/23 History colchicine 0.6 mg tablet 1.2 mg PO DIRECTED PRN GOUT 07/28/23 07/28/23 History FLARE UPS escitalopram oxalate 10 mg tablet 10 mg PO QAM 07/28/23 07/28/23 History hydroxyzine HCl 25 mg tablet 25 mg PO TID PRN Anxiety 07/28/23 07/28/23 History [id number] 0.4 mg-calcium 162 1 tab PO DAILY 07/28/23 07/28/23 History mg-iron 18 [id number] tablet Allergies Allergy/AdvReac Type Severity Reaction Status Date / Time No Known Allergies Allergy Verified 07/28/23 00:04 Past Med/Surg History Medical History Gout Hyperlipidemia Hypertension Social History Smoking Status: Never smoker Preferred Language: Wolof Feels Safe at Home: Yes Review of Systems A total of 10 systems reviewed and were otherwise negative Physical Exam Vital Signs Vital Signs - 24 hr 07/27/23 20:03 07/27/23 20:05 07/27/23 20:54 Temperature 37.0 C Temperature Source Oral Pulse Rate 92 H 103 H Pulse Rate [Apical] Pulse Rate from SpO2 Sensor Pulse Rhythm [Apical] Pulse Strength [Apical] Respiratory Rate 18 Respiratory Effort / Characteristics Non-Labored Spontaneous Respiratory Depth Normal Respiratory Pattern Regular Blood Pressure 170/118 H Blood Pressure [Right Arm] Blood Pressure Mean 135 Blood Pressure Mean [Right Arm] Blood Pressure Position [Right Arm] Pulse Oximetry 96 99 Oxygen Delivery Method Room Air Room Air Sepsis Recent Fever Within 48 Hours No Sepsis New/Unexplained Change in Mental Status No Sepsis Action Taken by Nursing No Action Required 07/27/23 20:55 07/27/23 21:41 07/27/23 21:58 Temperature Temperature Source Pulse Rate 94 H Pulse Rate [Apical] 103 H 96 H Pulse Rate from SpO2 Sensor 92 H Pulse Rhythm [Apical] Regular Pulse Strength [Apical] Normal Normal Respiratory Rate 19 19 15 Respiratory Effort / Characteristics Non-Labored Spontaneous Non-Labored Spontaneous Respiratory Depth Normal Normal Respiratory Pattern Regular Regular Blood Pressure Blood Pressure [Right Arm] 162/119 H 164/103 H Blood Pressure Mean Blood Pressure Mean [Right Arm] 133 123 Blood Pressure Position [Right Arm] Pulse Oximetry 93 98 95 Oxygen Delivery Method Room Air Room Air Room Air Sepsis Recent Fever Within 48 Hours Sepsis New/Unexplained Change in Mental Status Sepsis Action Taken by Nursing 07/27/23 22:00 07/27/23 22:01 07/27/23 22:30 Temperature Temperature Source Pulse Rate 96 H 96 H Pulse Rate [Apical] 96 H Pulse Rate from SpO2 Sensor 97 H 96 H Pulse Rhythm [Apical] Pulse Strength [Apical] Respiratory Rate 18 18 17 Respiratory Effort / Characteristics Non-Labored Spontaneous Respiratory Depth Normal Respiratory Pattern Regular Blood Pressure 161/109 H 161/113 H Blood Pressure [Right Arm] 161/109 H Blood Pressure Mean 126 129 Blood Pressure Mean [Right Arm] 126 Blood Pressure Position [Right Arm] Pulse Oximetry 91 95 94 Oxygen Delivery Method Room Air Room Air Room Air Sepsis Recent Fever Within 48 Hours Sepsis New/Unexplained Change in Mental Status Sepsis Action Taken by Nursing 07/27/23 22:37 07/27/23 23:09 07/27/23 23:11 Temperature Temperature Source Pulse Rate 94 H 93 H Pulse Rate [Apical] 93 H Pulse Rate from SpO2 Sensor 95 H 94 H Pulse Rhythm [Apical] Regular Pulse Strength [Apical] Normal Respiratory Rate 19 20 19 Respiratory Effort / Characteristics Non-Labored Spontaneous Respiratory Depth Normal Respiratory Pattern Regular Blood Pressure 162/114 H 167/104 H Blood Pressure [Right Arm] 167/104 H Blood Pressure Mean 130 125 Blood Pressure Mean [Right Arm] 125 Blood Pressure Position [Right Arm] Pulse Oximetry 94 92 93 Oxygen Delivery Method Room Air Room Air Room Air Sepsis Recent Fever Within 48 Hours Sepsis New/Unexplained Change in Mental Status Sepsis Action Taken by Nursing 07/27/23 23:30 07/28/23 00:00 07/28/23 00:30 Temperature Temperature Source Pulse Rate 91 H 92 H 92 H Pulse Rate [Apical] Pulse Rate from SpO2 Sensor 92 H 91 H 93 H Pulse Rhythm [Apical] Pulse Strength [Apical] Respiratory Rate 17 20 17 Respiratory Effort / Characteristics Respiratory Depth Respiratory Pattern Blood Pressure 163/113 H 160/110 H 169/115 H Blood Pressure [Right Arm] Blood Pressure Mean 129 126 133 Blood Pressure Mean [Right Arm] Blood Pressure Position [Right Arm] Pulse Oximetry 93 92 90 Oxygen Delivery Method Room Air Room Air Room Air Sepsis Recent Fever Within 48 Hours Sepsis New/Unexplained Change in Mental Status Sepsis Action Taken by Nursing 07/28/23 00:35 07/28/23 01:23 Temperature Temperature Source Pulse Rate 93 H Pulse Rate [Apical] 94 H Pulse Rate from SpO2 Sensor Pulse Rhythm [Apical] Regular Pulse Strength [Apical] Normal Respiratory Rate 17 Respiratory Effort / Characteristics Non-Labored Spontaneous Respiratory Depth Normal Respiratory Pattern Regular Blood Pressure Blood Pressure [Right Arm] 161/120 H Blood Pressure Mean Blood Pressure Mean [Right Arm] 133 Blood Pressure Position [Right Arm] Sitting Pulse Oximetry 93 Oxygen Delivery Method Room Air Sepsis Recent Fever Within 48 Hours Sepsis New/Unexplained Change in Mental Status Sepsis Action Taken by Nursing VITALS: Vitals are noted on the nurse's note and reviewed by myself. Vital signs stable. GENERAL: Pleasant patient, in no acute distress, nondiaphoretic, well-developed well-nourished. SKIN: Capillary reflex less than 2 seconds. HEENT: Normocephalic. PERRLA. EOMI. Nares patent. Mucous membranes moist. Neck is supple without nuchal rigidity. HEART: Regular rate and rhythm LUNGS: Clear to auscultation bilaterally without wheezes, rales or rhonchi. No retractions or accessory muscle use. ABDOMEN: Positive bowel sounds x 4. Normal tympanic percussion. Soft, nontender, without masses or organomegaly. Perry sign negative. No guarding or rebound tenderness. no CVA tenderness MUSCULOSKELETAL: No gross musculoskeletal defects. NEURO: Patient was alert and oriented to person place and time. No focal neurological deficits. Course Administered Medications Discontinued Medications Hydralazine HCl (Hydralazine Hcl 20 Mg/Ml Vial) 10 mg IV NOW STA Stop: 07/28/23 00:51 Last Admin: 07/28/23 01:18 Dose: 10 mg Documented By: KATLYN Magnesium Sulfate/Dextrose (Magnesium Sulfate / D5w) 1 gm in 100 mls @ 100 mls/hr IV Q1H LEONARD Stop: 07/28/23 00:34 Last Infusion: 07/28/23 01:15 Dose: Infused Documented By: Admin: 07/28/23 00:12 Dose: 100 mls/hr Documented By: Infusion: 07/28/23 00:05 Dose: Infused Documented By: Admin: 07/27/23 22:41 Dose: 100 mls/hr Documented By: WILMA Sodium Chloride (Nss) 1,000 mls @ 999 mls/hr IV .Q1H1M ONE Stop: 07/27/23 23:36 Last Infusion: 07/28/23 00:05 Dose: Infused Documented By: Admin: 07/27/23 22:44 Dose: 999 mls/hr Documented By: WILMA Ioversol (Optiray 320 125ml) 119 ml IV ONCE ONE Stop: 07/27/23 23:01 Last Admin: 07/27/23 23:01 Dose: 119 ml Documented By: EDWINA Medical Decision Making Medical Records Attestation: I reviewed the patient's medical records. Home Medications Current Medication List: was personally reviewed by me Laboratory Data Attestation: I reviewed the patient's lab results. 07/27/23 20:48 07/27/23 20:48 Lab Results 07/27/23 07/27/23 07/27/23 Range/Units 20:48 23:15 Unknown WBC 7.24 (4.8-10.8) K/ul RBC 4.25 L (4.70-6.10) M/uL Hgb 14.1 (14.0-18.0) g/dl Hct 40.0 L (42.0-52.0) % MCV 94.1 (80.0-100.0) fL MCH 33.2 (25.0-34.0) pg MCHC 35.3 (32.0-36.0) g/dL RDW Std Deviation 42.5 (36.4-46.3) fL RDW Coeff of Ernst 12.2 (11.5-14.5) % Plt Count 191 (130-400) K/uL MPV 9.2 L (9.4-12.4) fL PT 11.9 (9.0-12.0) Seconds INR 1.1 (0.9-1.1) APTT 27 (21-31) Seconds PTT Ratio 1.0 Sodium 136 (136-145) mmol/L Potassium 4.0 (3.5-5.1) mmol/L Chloride 101 (98-107) mmol/L Carbon Dioxide 24 (21-32) mmol/L Anion Gap 11 (3-11) BUN 16 (6-23) mg/dl Creatinine 1.04 (0.6-1.4) mg/dl Est Cr Clr Drug Dosing 104.8 ml/min Est GFR ( Amer) 95.2 ml/min Est GFR (Non-Af Amer) 82.2 ml/min BUN/Creatinine Ratio 15.4 (10-20) Glucose 122 H (70-99(Fasting)) mg/dl Calcium 9.6 (8.6-10.3) mg/dl Magnesium 1.4 L (1.7-2.4) mg/dl Total Bilirubin 0.7 (0.2-1.0) mg/dl AST 87 H (13-39) U/L ALT 120 H (7-52) U/L Alkaline Phosphatase 56 (34-104) U/L Total Creatine Kinase 682 H (30-223) U/L Troponin I High Sens 7.9 9.9 (0-20) pg/ml Total Protein 7.6 (6.0-8.3) gm/dl Albumin 4.6 (3.4-5.0) gm/dl Globulin 3.0 (2.5-4.0) gm/dl Albumin/Globulin Ratio 1.5 (0.9-2) Adenovirus (PCR) Not Detected (NotDetected) B. pertussis DNA (PCR) Not Detected (NotDetected) B.parapertussis DNA PCR Not Detected (NotDetected) C. pneumoniae DNA (PCR) Not Detected (NotDetected) Coronavirus OC43 (PCR) Not Detected (NotDetected) Coronavirus HKU1 (PCR) Not Detected (NotDetected) Coronavirus 229E (PCR) Not Detected (NotDetected) SARS-CoV-2 (PCR) Not Detected (NotDetected) Coronavirus NL63 (PCR) Not Detected (NotDetected) Human Metapneumovir PCR Not Detected (NotDetected) Influenza Type A (PCR) Not Detected (NotDetected) Influenza Type B (PCR) Not Detected (NotDetected) M. pneumoniae (PCR) Not Detected (NotDetected) Parainfluenza 1 (PCR) Not Detected (NotDetected) Parainfluenza 2 (PCR) Not Detected (NotDetected) Parainfluenza 3 (PCR) Not Detected (NotDetected) Parainfluenza 4 (PCR) Not Detected (NotDetected) RSV (PCR) Not Detected (NotDetected) Entero/Rhino (PCR) Not Detected (NotDetected) Imaging Data Attestation: I personally reviewed and interpreted this imaging study as follows: Radiologist's Impression: Chest CTA 07/27/23 22:34 Exam(s): CTA CHEST IV Amt: OPTIRAY 320 119ML EXAM: CT Angiography Chest With Intravenous Contrast CLINICAL HISTORY: Reason for exam: PE. TECHNIQUE: Axial computed tomographic angiography images of the chest with intravenous contrast. CTDI is 28.14 mGy and DLP is 959.74 mGy-cm. Automated exposure control was utilized for the study. A dose lowering technique was utilized adhering to the principles of ALARA. 3D and MIP reconstructed images were created and reviewed. COMPARISON: Chest x-ray 07/27/2023. FINDINGS: Pulmonary arteries: No pulmonary embolism. Aorta: No thoracic aortic aneurysm or dissection. Lungs: No consolidation. Minimal dependent atelectasis. Pleural space: No pleural effusion. No pneumothorax. Heart: No cardiomegaly. No pericardial effusion. No evidence of RV dysfunction. Bones/joints: No acute fracture. Soft tissues: Unremarkable. Lymph nodes: Unremarkable. No enlarged lymph nodes. Abdomen: Fatty liver. IMPRESSION: No pulmonary embolism. No aortic aneurysm or dissection. Minimal dependent atelectasis. Fatty liver. Electronically signed by: Иван Mcmahan M.D. 07/28/23 01:01 AM MDM Narrative Prior records/ancillary studies reviewed. Triage Nursing notes reviewed. Additional history obtained from family. The patient's history was concerning for chest pain. Differential diagnosis: Etiologies such as cardiac ischemia, aortic dissection, pulmonary embolism, pneumonia, pneumothorax, musculoskeletal, infections, pericarditis, myocarditis, esophageal rupture, gastrointestinal, as well as others were entertained. Physical examination: As above. ER treatment provided: An order was placed for continuous cardiac monitoring. The monitor shows a rate of 60-100 with a sinus rhythm per my interpretation. IV fluids, hydralazine, magnesium On reassessment the patient felt better. Diagnostic interpretation by me: The electrocardiogram was ordered for chest pain EKG: Normal sinus, right bundle, first-degree AV block, rate of 93. EKG compared to prior EKG. Impression normal sinus rhythm with a right bundle branch block unchanged and prior independently interpreted by myself I think arrhythmia is unlikely. EKG shows normal sinus rhythm with no interval abnormalities such as QT prolongation or WPW. There are no findings to suggest Brugada syndrome. Cardiac monitoring in the emergency department reveals no tachycardic or bradycardic dysrhythmia. Hypertrophic cardiomyopathy was considered but there are no clear historical elements pointing toward this. EKG is not suggestive. The QRS voltage is not extremely large and there are no suggestive Q waves. The labs Independently Interpreted by myself revealed 2 negative troponins. Minimally elevated LFTs. Low magnesium. Imaging studies: Chest x-ray with no acute consolidation, pneumothorax or free air per my independent or potation CT as above HEART SCORE: Hx: high/mod/low suspicion: 0 ECG: ST depression/nonspecific changes/normal: 0 Age: Greater than 65/45-64/less than 45: 1 Risk factors: (Hypertension, hyperlipidemia, diabetes, coronary disease, tobacco use, cocaine use): 2 Troponin: Greater than 2 times normal limits/1-2 times normal limits/normal: 0 Total: 3 Exam and history seem consistent with chest pain, arm pain and hypertension unlikely to be cardiac in etiology. CTA was negative. She had 2 troponins. Unchanged EKG. Patient is advised to follow-up family care in a few days or here in ER sooner for chest pain, difficulty breathing, worsening signs or symptoms or as needed. By the evaluation outlined above emergent etiologies such as cardiac ischemia, aortic dissection, pulmonary embolism, pneumonia, pneumothorax, infections, pericarditis, myocarditis, gastrointestinal, as well as others were deemed relatively unlikely. The pt informed about the findings as listed above. All questions were answered and pleased with the treatment. Return instructions were outlined and the patient was discharged in stable condition. Referral: The patient was referred back to primary care physician for follow-up in 2 to 3 days for a recheck of the current condition. The chart was completed utilizing [employer] Speech voice recognition software. Grammatical errors, random word insertions, pronoun errors, and incomplete sentences are an occassional consequence of this system due to software limitations, ambient noise, and hardware issues. Any formal questions or concerns about the content, text, or information contained within the body of this dictation should be directly addressed to the physician nurseryman assistant for clarification. Impression & Plan High blood pressure, Chest pain, Hypomagnesemia Discharge Plan Visit Data Chief Complaint: TIA Symptoms Stated Complaint: HIGH BP,NUMBNESS L SIDE,GAIT UNSTEADY, DEHYDRATED ED Provider: Daquan Keen ED Midlevel Provider: Ellyn Nieves Discharge Problem: High blood pressure, Chest pain, Hypomagnesemia Patient Disposition: Home - Self-Care Condition: Good Discharge Instructions Moshe/Other Patient Handouts: ED Chest Pain, Uncertain Cause, ED Hypertension, Established Activity Restrictions/Additional Instructions: Monitor your blood pressure. Keep a log and review this with your family doctor. Acetaminophen(Tylenol) may be used for fever or pain. Use 1000mg every six hours as needed. Avoid using more than 3000mg in a 24 hour period. Rest and drink plenty of fluids as tolerated. Continue current medications. Avoid strenuous activities and anything that worsens your pain. Resume normal activities once your symptoms resolve. Return to the ER immediately for worsening or persistent chest pain, abdominal pain, vomiting, fevers, chest pains, difficulty breathing, worsening of your condition, or as needed. Follow up with your primary physician in 2-3 days for a recheck of your current condition. Forms Stand Alone Forms: Work/School Release (ED), [facility], Important Visit Information Prescriptions Prescriptions: No Action lisinopril 20 mg tablet 20 mg PO HS allopurinol 100 mg tablet 200 mg PO HS simvastatin 20 mg tablet 20 mg PO HS amlodipine 5 mg tablet 5 mg PO HS hydroxyzine HCl 25 mg tablet 25 mg PO TID PRN (Reason: Anxiety) colchicine 0.6 mg Tablet 1.2 mg PO DIRECTED PRN (Reason: GOUT FLARE UPS) Rx Instructions: TAKE 2 TABS AT ONSET OF ATTACK, THEN REPEAT ONE HOUR LATER IF NEEDED. escitalopram oxalate 10 mg tablet 10 mg PO QAM Centrum 0.4-162-18 mg Tablet 1 tab PO DAILY Referrals Referrals: Salas Tobias MD [Primary Care Provider] - Discharge Problem: High blood pressure Qualifiers: Hypertension type: unspecified Qualified Code(s): I10 - Essential (primary) hypertension
--- NOTE | 2023-07-28 01:02 | CT Scan Report ---
Exam(s): CTA CHEST IV Amt: OPTIRAY 320 119ML EXAM: CT Angiography Chest With Intravenous Contrast CLINICAL HISTORY: Reason for exam: PE. TECHNIQUE: Axial computed tomographic angiography images of the chest with intravenous contrast. CTDI is 28.14 mGy and DLP is 959.74 mGy-cm. Automated exposure control was utilized for the study. A dose lowering technique was utilized adhering to the principles of ALARA. 3D and MIP reconstructed images were created and reviewed. COMPARISON: Chest x-ray 07/27/2023. FINDINGS: Pulmonary arteries: No pulmonary embolism. Aorta: No thoracic aortic aneurysm or dissection. Lungs: No consolidation. Minimal dependent atelectasis. Pleural space: No pleural effusion. No pneumothorax. Heart: No cardiomegaly. No pericardial effusion. No evidence of RV dysfunction. Bones/joints: No acute fracture. Soft tissues: Unremarkable. Lymph nodes: Unremarkable. No enlarged lymph nodes. Abdomen: Fatty liver. IMPRESSION: No pulmonary embolism. No aortic aneurysm or dissection. Minimal dependent atelectasis. Fatty liver. Electronically signed by: Иван Mcmahan M.D. 07/28/23 01:01 AM
[2023-07-28] MEDS: hydrALAZINE HCL 20 MG/ML VIAL IV STA (01:18)
[2023-07-28] MEDS: diphenhydrAMINE 50 MG/ML VIAL ONE (02:04)
[2023-07-28] MEDS: diphenhydrAMINE 50 MG/ML VIAL IV STA ×2 (02:04→02:42)
[2023-07-28] MEDS: METOPROLOL TARTRATE 1 MG/ML VIAL IV STA (02:42)
--- NOTE | 2023-07-28 05:54 | History & Physical Report ---
Date of Service July 28, 2023 Assessment & Plan (1) TIA (transient ischemic attack): Plan: 53-year-old male with past med history significant for gout, hypertension, nonalcoholic fatty liver disease, poor short-term memory, generalized anxiety disorder presents with facial numbness and upper extremity numbness since yesterday 4 PM. He checked his blood pressure it was high so he came to the ER. Currently he has only minimal numbness in the hands. In the ER after antihypertensive medications tried to discharge but patient complained of facial flushing so we called for admission. Yesterday felt short of breath. Denies any chest pain. No headache. No blurred vision. No earache or runny nose. No sore throat. No cough. No difficulty swallowing. No fevers. No nausea. No abdominal pain. Normal bowel and bladder movements. Ambulating okay. Resting comfortably and hemodynamically stable. The patient states his facial flushing and feeling of hotness improving but still has some. Questionable TIA Presents with numbness in the face and upper extremities Currently has only mild numbness in the hands Possible from hypertensive urgency Possible TIA Will do CT head, carotid Doppler Neuroconsult for further recommendations Hypertensive urgency Continue home amlodipine and lisinopril IV labetalol as needed Follow echo Telemonitoring Consult cardiology for further recommendations Facial flushing and Hotness Questionable from IV hydralazine Improving Will monitor Gout On allopurinol Hyperlipidemia On statin General anxiety disorder On Lexapro DVT prophylaxis SCDs for now Disposition Telemetry Full code History of Present Illness Chief Complaint: Numbness in the face and upper extremities Primary Care Provider: Salas Tobias MD 53-year-old male with past med history significant for gout, hypertension, nonalcoholic fatty liver disease, poor short-term memory, generalized anxiety disorder presents with facial numbness and upper extremity numbness since yesterday 4 PM. He checked his blood pressure it was high so he came to the ER. Currently he has only minimal numbness in the hands. In the ER after antihypertensive medications tried to discharge but patient complained of facial flushing so we called for admission. Yesterday felt short of breath. Denies any chest pain. No headache. No blurred vision. No earache or runny nose. No sore throat. No cough. No difficulty swallowing. No fevers. No nausea. No abdominal pain. Normal bowel and bladder movements. Ambulating okay. Resting comfortably and hemodynamically stable. The patient states his facial flushing and feeling of hotness improving but still has some. Past medical history. As mentioned above Past surgical history. Carpal tunnel surgery in the left hand. Colonoscopy. Shoulder arthroscopy. Social history. . No smoking. Alcohol sixpack on weekends. No drug use. Family history. Father had heart disorder. Had COVID. Spine infection. Stroke. Allergies Allergy/AdvReac Type Severity Reaction Status Date / Time No Known Allergies Allergy Verified 07/28/23 00:04 Home Medications Medication Instructions Recorded Confirmed Type allopurinol 100 mg tablet 200 mg PO HS 03/24/20 07/28/23 History lisinopril 20 mg tablet 20 mg PO HS 03/24/20 07/28/23 History simvastatin 20 mg tablet 20 mg PO HS 03/24/20 07/28/23 History amlodipine 5 mg tablet 5 mg PO HS 07/28/23 07/28/23 History colchicine 0.6 mg tablet 1.2 mg PO DIRECTED PRN GOUT 07/28/23 07/28/23 History FLARE UPS escitalopram oxalate 10 mg tablet 10 mg PO QAM 07/28/23 07/28/23 History hydroxyzine HCl 25 mg tablet 25 mg PO TID PRN Anxiety 07/28/23 07/28/23 History [id number] 0.4 mg-calcium 162 1 tab PO DAILY 07/28/23 07/28/23 History mg-iron 18 gc-bxyigyz-bdmoyr tablet Past Med/Surg History Medical History Gout Hyperlipidemia Hypertension Social History Smoking Status: Never smoker Preferred Language: [place] Feels Safe at Home: Yes Review of Systems Review of Systems: All systems reviewed & are unremarkable except as noted in HPI & below Physical Exam Physical Exam: General- Not in distress Head- atraumatic Eyes- PERRL, EOMI. ENT- oropharynx clear Neck- supple, no JVD. Lungs- clear to auscultation no wheezing or crackles. Heart- regular rhythm; no murmur, no gallop. Abdomen- normal bowel sounds, soft, nontender, no distension Extremities- no pretibial edema, no erythema seen. Neuro- alert, oriented PERRL, EOMI; no facial palsy; no dysarthria; motor 5/5 bilaterally; no pronator drift, sensations intact. Position sense intact Skin- warm & dry Results & Data Results & Data Vital Signs (Past 12 Hours) Vital Signs Temp Pulse Pulse Resp BP BP Pulse Ox 07/28/23 04:35 77 07/28/23 04:30 78 16 150/107 H 94 07/28/23 04:00 81 20 154/105 H 95 07/28/23 03:30 82 20 145/102 H 94 07/28/23 03:00 78 16 156/109 H 94 07/28/23 02:54 77 13 154/108 H 93 07/28/23 02:42 98 H 162/107 H 07/28/23 02:30 102 H 12 162/107 H 94 07/28/23 02:00 100 H 12 156/111 H 93 07/28/23 02:00 36.9 C 95 H 20 172/105 H 94 07/28/23 01:59 100 H 15 165/122 H 93 07/28/23 01:36 99 H 20 173/117 H 94 07/28/23 01:30 101 H 16 176/106 H 91 07/28/23 01:23 94 H 19 161/120 H 93 07/28/23 01:23 94 H 17 161/120 H 93 07/28/23 01:00 92 H 16 168/115 H 92 07/28/23 00:35 93 H 07/28/23 00:30 92 H 17 169/115 H 90 07/28/23 00:00 92 H 20 160/110 H 92 07/27/23 23:30 91 H 17 163/113 H 93 07/27/23 23:11 93 H 19 167/104 H 93 07/27/23 23:09 93 H 20 167/104 H 92 07/27/23 22:37 94 H 19 162/114 H 94 07/27/23 22:30 96 H 17 161/113 H 94 07/27/23 22:01 96 H 18 161/109 H 95 07/27/23 22:00 96 H 18 161/109 H 91 07/27/23 21:58 94 H 15 95 07/27/23 21:41 96 H 19 164/103 H 98 04/28/24 20:55 103 H 19 162/119 H 93 07/27/23 20:54 99 07/27/23 20:05 37.0 C 103 H 18 170/118 H 96 07/27/23 20:03 92 H O2 Del Method 07/28/23 04:35 07/28/23 04:30 Room Air 07/28/23 04:00 Room Air 07/28/23 03:30 Room Air 07/28/23 03:00 Room Air 07/28/23 02:54 Room Air 07/28/23 02:42 07/28/23 02:30 Room Air 07/28/23 02:00 Room Air 07/28/23 02:00 Room Air 07/28/23 01:59 Room Air 07/28/23 01:36 Room Air 07/28/23 01:30 Room Air 07/28/23 01:23 Room Air 07/28/23 01:23 Room Air 07/28/23 01:00 Room Air 07/28/23 00:35 07/28/23 00:30 Room Air 07/28/23 00:00 Room Air 07/27/23 23:30 Room Air 07/27/23 23:11 Room Air 07/27/23 23:09 Room Air 07/27/23 22:37 Room Air 07/27/23 22:30 Room Air 07/27/23 22:01 Room Air 07/27/23 22:00 Room Air 07/27/23 21:58 Room Air 07/27/23 21:41 Room Air 07/27/23 20:55 Room Air 07/27/23 20:54 Room Air 07/27/23 20:05 Room Air 07/27/23 20:03 Diagnostic Findings Laboratory Results WBC 7.24 K/ul (4.8-10.8) 07/27/23 20:48 RBC 4.25 M/uL (4.70-6.10) L 07/27/23 20:48 Hgb 14.1 g/dl (14.0-18.0) 07/27/23 20:48 Hct 40.0 % (42.0-52.0) L 07/27/23 20:48 MCV 94.1 fL (80.0-100.0) 07/27/23 20:48 MCH 33.2 pg (25.0-34.0) 07/27/23 20:48 MCHC 35.3 g/dL (32.0-36.0) 07/27/23 20:48 RDW Std Deviation 42.5 fL (36.4-46.3) 07/27/23 20:48 RDW Coeff of Ernst 12.2 % (11.5-14.5) 07/27/23 20:48 Plt Count 191 K/uL (130-400) 07/27/23 20:48 MPV 9.2 fL (9.4-12.4) L 07/27/23 20:48 PT 11.9 Seconds (9.0-12.0) 07/27/23 20:48 INR 1.1 (0.9-1.1) 07/27/23 20:48 APTT 27 Seconds (21-31) 07/27/23 20:48 PTT Ratio 1.0 07/27/23 20:48 Sodium 136 mmol/L (136-145) 07/27/23 20:48 Potassium 4.0 mmol/L (3.5-5.1) 07/27/23 20:48 Chloride 101 mmol/L (98-107) 07/27/23 20:48 Carbon Dioxide 24 mmol/L (21-32) 07/27/23 20:48 Anion Gap 11 (3-11) 07/27/23 20:48 BUN 16 mg/dl (6-23) 07/27/23 20:48 Creatinine 1.04 mg/dl (0.6-1.4) 07/27/23 20:48 Est Cr Clr Drug Dosing 104.8 ml/min 07/27/23 20:48 Est GFR ( Amer) 95.2 ml/min 07/27/23 20:48 Est GFR (Non-Af Amer) 82.2 ml/min 07/27/23 20:48 BUN/Creatinine Ratio 15.4 (10-20) 07/27/23 20:48 Glucose 122 mg/dl (70-99(Fasting)) H 07/27/23 20:48 Calcium 9.6 mg/dl (8.6-10.3) 07/27/23 20:48 Magnesium 1.4 mg/dl (1.7-2.4) L 07/27/23 20:48 Total Bilirubin 0.7 mg/dl (0.2-1.0) 07/27/23 20:48 AST 87 U/L (13-39) H 07/27/23 20:48 ALT 120 U/L (7-52) H 07/27/23 20:48 Alkaline Phosphatase 56 U/L (34-104) 07/27/23 20:48 Total Creatine Kinase 682 U/L (30-223) H 07/27/23 20:48 Troponin I High Sens 9.9 pg/ml (0-20) 07/27/23 23:15 Total Protein 7.6 gm/dl (6.0-8.3) 07/27/23 20:48 Albumin 4.6 gm/dl (3.4-5.0) 07/27/23 20:48 Globulin 3.0 gm/dl (2.5-4.0) 07/27/23 20:48 Albumin/Globulin Ratio 1.5 (0.9-2) 07/27/23 20:48 Adenovirus (PCR) Not Detected (NotDetected) 07/27/23 Unknown B. pertussis DNA (PCR) Not Detected (NotDetected) 07/27/23 Unknown B.parapertussis DNA PCR Not Detected (NotDetected) 07/27/23 Unknown C. pneumoniae DNA (PCR) Not Detected (NotDetected) 07/27/23 Unknown Coronavirus OC43 (PCR) Not Detected (NotDetected) 07/27/23 Unknown Coronavirus HKU1 (PCR) Not Detected (NotDetected) 07/27/23 Unknown Coronavirus 229E (PCR) Not Detected (NotDetected) 07/27/23 Unknown SARS-CoV-2 (PCR) Not Detected (NotDetected) 07/27/23 Unknown Coronavirus NL63 (PCR) Not Detected (NotDetected) 07/27/23 Unknown Human Metapneumovir PCR Not Detected (NotDetected) 07/27/23 Unknown Influenza Type A (PCR) Not Detected (NotDetected) 07/27/23 Unknown Influenza Type B (PCR) Not Detected (NotDetected) 07/27/23 Unknown M. pneumoniae (PCR) Not Detected (NotDetected) 07/27/23 Unknown Parainfluenza 1 (PCR) Not Detected (NotDetected) 07/27/23 Unknown Parainfluenza 2 (PCR) Not Detected (NotDetected) 07/27/23 Unknown Parainfluenza 3 (PCR) Not Detected (NotDetected) 07/27/23 Unknown Parainfluenza 4 (PCR) Not Detected (NotDetected) 07/27/23 Unknown RSV (PCR) Not Detected (NotDetected) 07/27/23 Unknown Entero/Rhino (PCR) Not Detected (NotDetected) 07/27/23 Unknown Impressions Chest CTA 07/27/23 22:34 Exam(s): CTA CHEST IV Amt: OPTIRAY [id number] EXAM: CT Angiography Chest With Intravenous Contrast CLINICAL HISTORY: Reason for exam: PE. TECHNIQUE: Axial computed tomographic angiography images of the chest with intravenous contrast. CTDI is 28.14 mGy and DLP is 959.74 mGy-cm. Automated exposure control was utilized for the study. A dose lowering technique was utilized adhering to the principles of ALARA. 3D and MIP reconstructed images were created and reviewed. COMPARISON: Chest x-ray 07/27/2023. FINDINGS: Pulmonary arteries: No pulmonary embolism. Aorta: No thoracic aortic aneurysm or dissection. Lungs: No consolidation. Minimal dependent atelectasis. Pleural space: No pleural effusion. No pneumothorax. Heart: No cardiomegaly. No pericardial effusion. No evidence of RV dysfunction. Bones/joints: No acute fracture. Soft tissues: Unremarkable. Lymph nodes: Unremarkable. No enlarged lymph nodes. Abdomen: Fatty liver. IMPRESSION: No pulmonary embolism. No aortic aneurysm or dissection. Minimal dependent atelectasis. Fatty liver. Electronically signed by: Иван Mcmahan M.D. 07/28/23 01:01 AM ECG Additional Comments: ECG sinus rhythm with first-degree AV block with a rate of 93. Right bundle branch block. Code Status & VTE Plan VTE Prophylaxis Plan VTE Prophylaxis will be ordered: Yes
--- NOTE | 2023-07-28 07:11 | XRay Report ---
XR chest 1V portable HISTORY: 53 years-old Male cp acute chest pain COMPARISON: 07/27/2023 TECHNIQUE: AP view of the chest FINDINGS: Cardiac silhouette is enlarged. No pneumothorax, pleural effusion, airspace consolidation or pulmonar y edema. Bones of the chest appear grossly intact. IMPRESSION: No acute process. ACT 112: Negative or not required by law. The above report was generated using voice recognition software. It may contain grammatical, syntax o r spelling errors. Electronically signed by: Ashish Izquierdo M.D. 07/28/2023 7:09 AM
[2023-07-28] MEDS: ACETAMINOPHEN 325 MG TAB ONE (08:21)
--- NOTE | 2023-07-28 09:05 | Electrocardiogram Report ---
Test Reason : Blood Pressure : / mmHG Vent. Rate : 093 BPM Atrial Rate : 093 BPM P-R Int : 246 ms QRS Dur : 146 ms QT Int : 386 ms P-R-T Axes : 054 037 021 degrees QTc Int : 479 ms Sinus rhythm with 1st degree A-V block Right bundle branch block , could be rate related Abnormal ECG When compared with ECG of 13-FEB-2015 01:33, Right bundle branch block is now Present Confirmed by Will Cardenas ([id number]) on 07/28/2023 9:05:15 AM Referred By: Salas Tobias Confirmed By:Will Cardenas
[2023-07-28] MEDS ORDERED: NITROGLYCERIN SL 0.4 MG/TAB TAB SL PRN (09:38)
[2023-07-28] MEDS ORDERED: PHARMACIST DISCHARGE MED REC CONSULT PRN (09:38)
[2023-07-28] MEDS ORDERED: LABETALOL HCL IV 5 MG/ML 20ML IV PRN (09:38)
[2023-07-28] MEDS ORDERED: hydrOXYzine HCl 25 MG TAB PO PRN (09:38)
[2023-07-28] MEDS: SODIUM CHLORIDE 0.9% 1,000 ML IV SCH (10:09)
--- NOTE | 2023-07-28 10:27 | Cardiology Consultation ---
Date of Consultation July 28, 2023 Assessment & Plan (1) Hypertensive urgency: (2) Headache: (3) Facial tingling: (4) Hypomagnesemia: Plan Patient admitted with uncontrolled hypertension associated with headache, facial numbness/tingling and hypomagnesia. EKG without acute changes - NSR with RBBB. stable from 2021 EKG. HS troponin negative x2. He was treated with home dose lisinopril 20 mg and amlodipine 5 mg with intermittent IV hydralazine and IV labetalol. It seems IV hydralazine made his facial flushing worse. Increase lisinopril to 20 mg BID. Continue amlodipine 5 mg and titrate as needed. Would avoid additional IV medications. Transition to oral medications. Head CT ordered. Carotid duplex ordered. Echo completed this morning and results pending. IV magnesium supplemented. Low on arrival. Improved today. Further recommendations pending review of above test results and response to titration of antihypertensive therapies. Will continue to titrate as needed. Case discussed with Dr. Torres. I spent a total of 50 minutes on the date of service in preparation, delivery, and documentation of the care provided to this patient, excluding any time spent in the performance of separately billed services. Kassandra Gage PA-C Department of Cardiology, [facility] This chart was completed in part utilizing Speech Voice Recognition Software. Grammatical errors, random word insertions, pronoun errors, and incomplete sentences are an occasional consequence of this system due to software limitations, ambient noise, and hardware issues. Any formal questions or concerns about the content, text, or information contained within the body of this dictation should be directly addressed to the provider for clarification. Supervising Physician Co-Signing Physician Notes I have reviewed the advance practitioner's documentation, and I agree with, and take responsibility for the plan of care. 53-year-old male present to the emergency department with paresthesias, facial numbness/tingling and elevated blood pressure. Symptoms involves bilateral upper extremities and face. Also noted associated shortness of breath. Significantly elevated blood pressure on admission. 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 Reports adequate hydration. Symptoms began after completing his work duties. Amlodipine recently reduced from 5 mg daily to 2.5 mg daily by primary care physician approximately 2 weeks ago. Blood pressure remains elevated. Treated with both IV hydralazine and labetalol overnight with subsequent flushing. Carries history of migraine headache. Also notes excessive snoring. Tested for sleep apnea many years ago. PE: Hypertensive. General: NAD, awake alert and oriented x 3. Heart: Regular rhythm, normal S1-S2. No murmur. Lungs: Clear bilateral, no rales, rhonchi. Extremities: No edema. A/P: 53-year-old male presents with hypertensive urgency and strokelike symptoms. Recommend CT of the head STAT. Case discussed with hospitalist. Neurology recommending CTA of the head and neck as well as MRI of the brain. Titrate lisinopril to 20 mg twice daily, add hydrochlorothiazide, and increase amlodipine back to 5 mg daily. Continue statin therapy. Hold IV labetalol and hydralazine (possible adverse reaction, flushing). No evidence of acute coronary syndrome. Stress testing May 2021 negative for inducible ischemia. Recommend outpatient polysomnography. History of Present Illness Reason for Consultation: HTN; possible TIA Requesting Physician: Dr. Herbert Attending Physician: Dr. Ng History of Present Illness Patient is a 53 year old male admitted to [facility] after having facial numbness/tingling and found his BP to be elevated at home. Patient was working on his farm all day yesterday in the heat. He felt well during the time. Reports he was drinking about 1 bottle of water every 30-60 minutes but was not urinating. At the end of the day, he began his drive home and felt tingling sensation begin in his face and then radiate down his left arm into his left handing. Hand felt numb. Noted mild dizziness. And then he became SOB but No chest pain. Upon arriving home he took his PB and readings were > 170/120 and he came to the ER for evaluation. Upon arrival to the ER, BP remained elevated. HS troponin negative x 2. EKG demonstrated NSR with 1st degree AV block and RBBB, unchanged from last outpatient EKG in May 2021. He had minimally elevated LFT's and CK level on arrival. His magnesium level was also very low at 1.4 and this was supplemented with IV magnesium. Chest CTA was ordered without acute findings and underlying fatty liver noted. Carotid duplex ordered. Head CT was discussed in admission H&P but not ordered. neuro consult ordered. Patient denies missed doses of his antihypertensive therapies. Taking lisinopril and amlodipine as an outpatient. he denies recent chest pain or dyspnea with exertional activities. At time of consult, patient resting in chair. Reports dull "headache" but numbness and tingling improving. No recurrent facial numbness. He has residual tingling in his left hand. No weakness. No SOB/CP. BP remains elevated since admission. He received several doses of IV hydralazine and IV labetalol. He had facial flushing with possibly the IV hydralazine. History includes: 1. Hypertension 2. Dyslipidemia 3. Anxiety 4. RBBB 5. Negative stress echo in May 2021 Allergies Allergy/AdvReac Type Severity Reaction Status Date / Time No Known Allergies Allergy Verified 07/28/23 00:04 Home Medications Medication Instructions Recorded Confirmed Type allopurinol 100 mg tablet 200 mg PO HS 03/24/20 07/28/23 History lisinopril 20 mg tablet 20 mg PO HS 03/24/20 07/28/23 History simvastatin 20 mg tablet 20 mg PO HS 03/24/20 07/28/23 History amlodipine 5 mg tablet 5 mg PO HS 07/28/23 07/28/23 History colchicine 0.6 mg tablet 1.2 mg PO DIRECTED PRN GOUT 07/28/23 07/28/23 History FLARE UPS escitalopram oxalate 10 mg tablet 10 mg PO QAM 07/28/23 07/28/23 History hydroxyzine HCl 25 mg tablet 25 mg PO TID PRN Anxiety 07/28/23 07/28/23 History jpjwduwc-xcx-EV 0.4 mg-calcium 162 1 tab PO DAILY 07/28/23 07/28/23 History mg-iron 18 xt-pbsrrki-lgfvau tablet Patient History Medical History Gout Hyperlipidemia Hypertension Social History Smoking Status: Never smoker Hx Alcohol Use: Yes Alcohol type: beer Hx Substance Use: No Preferred Language: Greek Communication Ability: Effective Cupola Patcher Helper Required: No Beliefs That Will Affect Care: None Current Living Situation: Spouse Feels Safe at Home: Yes Safety Concerns: Feels Safe At This Time Assistive Devices: None Review of Systems Review of Systems: All systems reviewed & are unremarkable except as noted in HPI & below Physical Exam Constitutional: WD/WN, vitals as above well developed; no acute distress Neck: trachea midline, no thyromegaly Respiratory: normal respiratory effort, lungs clear to auscultation Cardiovascular: Rate/Rhythm: regular rate and regular rhythm Heart Sounds: no murmur Vessels: no JVD Extremities: no edema Gastrointestinal (Abdomen): normal bowel sounds, soft, nontender, no hepatosplenomegaly Skin: no rashes, warm and dry Neurologic: PERRL, EOMI, accommodation nl, no face palsy, no dysarthria Psychiatric: A+Ox3, euthymic affect Results & Data Vital Signs (Past 12 Hours) Vital Signs Temp Pulse Pulse Resp BP BP Pulse Ox 07/28/23 09:38 07/28/23 09:09 36.6 C 76 17 145/97 H 93 07/28/23 08:49 75 18 158/108 H 94 07/28/23 08:29 79 07/28/23 07:01 78 18 158/108 H 95 07/28/23 06:30 79 14 154/104 H 93 07/28/23 06:00 74 15 145/97 H 92 07/28/23 06:00 77 17 154/104 H 94 07/28/23 05:30 79 16 144/100 H 95 07/28/23 05:00 73 14 149/104 H 95 07/28/23 04:35 77 07/28/23 04:30 78 16 150/107 H 94 07/28/23 04:00 81 20 154/105 H 95 07/28/23 03:30 78 145/102 H 07/28/23 03:30 82 20 145/102 H 94 07/28/23 03:00 78 16 156/109 H 94 07/28/23 02:54 77 13 154/108 H 93 07/28/23 02:42 98 H 162/107 H 07/28/23 02:30 102 H 12 162/107 H 94 07/28/23 02:00 100 H 12 156/111 H 93 07/28/23 02:00 36.9 C 95 H 20 172/105 H 94 07/28/23 01:59 100 H 15 165/122 H 93 07/28/23 01:36 99 H 20 173/117 H 94 07/28/23 01:30 101 H 16 176/106 H 91 07/28/23 01:23 94 H 19 161/120 H 93 07/28/23 01:23 94 H 17 161/120 H 93 07/28/23 01:00 92 H 16 168/115 H 92 07/28/23 00:35 93 H 07/28/23 00:30 92 H 17 169/115 H 90 07/28/23 00:00 92 H 20 160/110 H 92 07/27/23 23:30 91 H 17 163/113 H 93 07/27/23 23:11 93 H 19 167/104 H 93 07/27/23 23:09 93 H 20 167/104 H 92 07/27/23 22:37 94 H 19 162/114 H 94 07/27/23 22:30 96 H 17 161/113 H 94 O2 Del Method 07/28/23 09:38 Room Air 07/28/23 09:09 Room Air 07/28/23 08:49 Room Air 07/28/23 08:29 07/28/23 07:01 Room Air 07/28/23 06:30 Room Air 07/28/23 06:00 Room Air 07/28/23 06:00 Room Air 07/28/23 05:30 Room Air 07/28/23 05:00 Room Air 07/28/23 04:35 07/28/23 04:30 Room Air 07/28/23 04:00 Room Air 07/28/23 03:30 07/28/23 03:30 Room Air 07/28/23 03:00 Room Air 07/28/23 02:54 Room Air 07/28/23 02:42 07/28/23 02:30 Room Air 07/28/23 02:00 Room Air 07/28/23 02:00 Room Air 07/28/23 01:59 Room Air 07/28/23 01:36 Room Air 07/28/23 01:30 Room Air 07/28/23 01:23 Room Air 07/28/23 01:23 Room Air 07/28/23 01:00 Room Air 07/28/23 00:35 07/28/23 00:30 Room Air 07/28/23 00:00 Room Air 07/27/23 23:30 Room Air 07/27/23 23:11 Room Air 07/27/23 23:09 Room Air 07/27/23 22:37 Room Air 07/27/23 22:30 Room Air Laboratory Results Cardiac Enzymes 07/27/23 07/27/23 Range/Units 20:48 23:15 AST 87 H (13-39) U/L Troponin I High Sens 7.9 9.9 (0-20) pg/ml Coagulation 07/27/23 Range/Units 20:48 PT 11.9 (9.0-12.0) Seconds APTT 27 (21-31) Seconds CBC 07/27/23 Range/Units 20:48 WBC 7.24 (4.8-10.8) K/ul RBC 4.25 L (4.70-6.10) M/uL Hgb 14.1 (14.0-18.0) g/dl Hct 40.0 L (42.0-52.0) % Plt Count 191 (130-400) K/uL Comprehensive Metabolic Panel 07/27/23 Range/Units 20:48 Sodium 136 (136-145) mmol/L Potassium 4.0 (3.5-5.1) mmol/L Chloride 101 (98-107) mmol/L Carbon Dioxide 24 (21-32) mmol/L BUN 16 (6-23) mg/dl Creatinine 1.04 (0.6-1.4) mg/dl Glucose 122 H (70-99(Fasting)) mg/dl Calcium 9.6 (8.6-10.3) mg/dl AST 87 H (13-39) U/L ALT 120 H (7-52) U/L Alkaline Phosphatase 56 (34-104) U/L Total Protein 7.6 (6.0-8.3) gm/dl Albumin 4.6 (3.4-5.0) gm/dl Intake and Output 07/27/23 07/28/23 07/28/23 22:59 06:59 14:59 Intake Total 1200 / 1200 Balance 1200 / 1200 Intake: IV 1200 / 1200 Magnesium Sulfate / D5w 1 gm In 200 / 200 100 ml @ 100 mls/hr IV Q1H [facility] Rx#:[id number] Sodium Chloride 0.9% 1,000 ml @ 1000 / 1000 999 mls/hr IV .Q1H1M ONE Rx#: [id number] Other: Weight 109.9 kg 98.8 kg Weight Measurement Method Chair Scale Built in [facility] Patient Weight 07/29/23 06:59 Weight 98.8 kg Diagnostic Findings Telemetry reviewed: NSR, no arrhythmias EKG reviewed: NSR with 1st degree AV block, RBBB. No significant change from previous Chest CTA report reviewed from admission: IMPRESSION: No pulmonary embolism. No aortic aneurysm or dissection. Minimal dependent atelectasis. Fatty liver Outpatient data: Exercise stress echo report reviewed dated May 2021: Stress echo negative for inducible ischemia. Stress EKG was negative for ischemic changes. BP response to exercise was normal. LVEF [id number] No significant valvular disease. Medications Administered Current Inpatient Medications Acetaminophen (Acetaminophen 325 Mg Tab) 650 mg PO Q4H PRN PRN Reason: Pain or Fever Stop: 08/27/23 09:37 Allopurinol (Allopurinol 100 Mg Tab) 200 mg PO HS LEONARD Stop: 08/27/23 20:59 Amlodipine Besylate (Amlodipine Besylate 5 Mg Tab) 5 mg PO HS LEONARD Stop: 08/27/23 20:59 Escitalopram Oxalate (Escitalopram Oxalate 10 Mg Tab) 10 mg PO QAM LEONARD Stop: 08/27/23 09:59 Last Admin: 07/28/23 10:34 Dose: 10 mg Hydroxyzine HCl (Hydroxyzine Hcl 25 Mg Tab) 25 mg PO TID PRN PRN Reason: Anxiety Stop: 08/27/23 09:37 Sodium Chloride (Nss) 1,000 mls @ 75 mls/hr IV .[id number] LEONARD Stop: 07/28/23 23:19 Last Admin: 07/28/23 10:09 Dose: 75 mls/hr Labetalol HCl (Labetalol Hcl Iv 5 Mg/Ml 20ml) 10 mg IV Q4H PRN PRN Reason: Hypertension Stop: 08/27/23 09:37 Lisinopril (Lisinopril 20 Mg Tab) 20 mg PO BID LEONARD Stop: 08/27/23 10:14 Last Admin: 07/28/23 10:33 Dose: 20 mg Miscellaneous Information (Pharmacist Discharge Med Rec Consult) 1 each N/A UD PRN PRN Reason: Consult Stop: 08/27/23 09:37 Multivitamins/Minerals (Cerovite Adv Formula Tab) 1 tab PO DAILY LEONARD Stop: 08/28/23 08:59 Nitroglycerin (Nitroglycerin Sl 0.4 Mg/Tab Tab) 0.4 mg SL Q5M PRN PRN Reason: Chest Pain Stop: 08/27/23 09:37 Simvastatin (Simvastatin 20 Mg Tab) 20 mg PO HS LEONARD Stop: 08/27/23 20:59
[2023-07-28] MEDS: lisinopril 20 MG TAB PO SCH (10:33)
[2023-07-28] MEDS: ESCITALOPRAM OXALATE 10 MG TAB PO SCH (10:34)
[2023-07-28 11:04] LABS: Albumin Globulin Ratio 1.4 (0.9-2); Albumin Level 4.5 gm/dl (3.4-5.0); Bilirubin,Total 0.9 mg/dl (0.2-1.0); Calcium 9.4 mg/dl (8.6-10.3); Creatinine Clr Calc Pharmacy 112.5 ml/min; Est GFR (African American) 110.4 ml/min; Est GFR (Non-African American) 95.3 ml/min; Globulin 3.2 gm/dl (2.5-4.0); Magnesium 2.2 mg/dl (1.7-2.4); Potassium 3.8 mmol/L (3.5-5.1); Total Protein 7.7 gm/dl (6.0-8.3)
--- NOTE | 2023-07-28 12:07 | Neurology Consultation ---
Date of Consultation July 28, 2023 Assessment & Plan (1) Stroke-like symptoms: Recommend admission for continued stroke work up to include the following: CTA head & neck MRI brain without contrast Echocardiogram as part of complete stroke workup Continue frequent neurological assessments Obtain stat CT brain without contrast for any acute neurological decline Continue to monitor telemetry closely Recommend ZioPatch at DC if no evidence of arrhythmia during inpatient monitoring Continue to monitor/control blood pressure & blood glucose Metabolic workup should include hgbA1c, fasting lipids, homocysteine, TSH, D Dimer Recommend DAPT for at least 3 weeks Recommend high dose statin therapy indefinitely if tolerated Ok from neurology perspective for VTE prophylaxis PT/OT/SLT to eval and treat Recommend outpatient polysomnography Telehealth Consultation Telehealth Information Telehealth Information: I performed this visit using a real-time telehealth connection between my location and the patients location ([facility]). After connecting through interactive tele-video, patient was identified by name and date of and/or wristband check.Patient (or authorized healthcare r epresentative) was informed that this was a telemedicine visit and it was being conducted confidentially over secure lines. My office door was closed and no one else was present in the room with me.Patient (or authorized healthcare member service representative) provided consent to proceed with the visit, expressed an understanding of privacy and security of the telemedicine visit, and gave permission to have a hospital member service representative in the room in order to assist with the visit and to conduct portions of the visit, as needed. I informed the patient (or authorized healthcare member service representative) that I reviewed their record and presented the opportunity for them to ask any questions regarding the visit today. The patient agreed to participate. History of Present Illness Reason for Consultation: Stroke Like Symptoms Requesting Physician: Dr. Landa Attending Physician: Rickie Landa MD History of Present Illness 53yo left handed male presented yesterday with report of paresthesia of LUE and left face. He has a history of HTN, hyperlipidemia and gout. He arrived HTN. I have reviewed EMR. he has not yet undergone stroke imaging. I have performed televideo consultation. He is alert & oriented; able to answer all questions appropriately, name objects on televideo monitor, repeat phrases and perform complex/embedded commands without deficit. Neurological exam is non later alizing/nonfocal in terms of motor strength and coordination. NIHSS=1 for LUE distal paresthesia (hand). He no longer reports full arm or face paresthesia. No reported cephalgia or cervicalgia. Denies chest pain/palpitations or shortness of breath at this time. No reported changes in vision hearing dizziness syncope seizure like activity. Denies recent fevers chills nausea vomiting changes in bowels or bladder. Denies recent medication changes, recent illness or sick contacts, no reported recent travel. He denies awakening from sleep short of breath or with palpitations but does endorse significant snoring. State he had a sleep study "many many many years ago". Is agreeable to repeat sleep study. Allergies Allergy/AdvReac Type Severity Reaction Status Date / Time No Known Allergies Allergy Verified 07/28/23 00:04 Home Medications Medication Instructions Recorded Confirmed Type allopurinol 100 mg tablet 200 mg PO HS 03/24/20 07/28/23 History lisinopril 20 mg tablet 20 mg PO HS 03/24/20 07/28/23 History simvastatin 20 mg tablet 20 mg PO HS 03/24/20 07/28/23 History amlodipine 5 mg tablet 5 mg PO HS 07/28/23 07/28/23 History colchicine 0.6 mg tablet 1.2 mg PO DIRECTED PRN GOUT 07/28/23 07/28/23 History FLARE UPS escitalopram oxalate 10 mg tablet 10 mg PO QAM 07/28/23 07/28/23 History hydroxyzine HCl 25 mg tablet 25 mg PO TID PRN Anxiety 07/28/23 07/28/23 History fxpajhlg-tdp-DW 0.4 mg-calcium 162 1 tab PO DAILY 07/28/23 07/28/23 History mg-iron 18 fl-mtmvevm-injlqc tablet Patient History Medical History Gout Hyperlipidemia Hypertension Social History Smoking Status: Never smoker Hx Alcohol Use: Yes Alcohol type: beer Hx Substance Use: No Preferred Language: Argentine Communication Ability: Effective Survey Research Analyst Required: No Beliefs That Will Affect Care: None Current Living Situation: Spouse Feels Safe at Home: Yes Safety Concerns: Feels Safe At This Time Assistive Devices: None Physical Exam Neurological Examination: Mental Status: Awake and alert. Oriented to person, place, and time. Fluency naming repetition and comprehension appear grossly intact. Affect remains appropriate. CN testing: I: Denies changes in ability to smell II:Reports no changes in visual acuity III/IV/: No evidence of gaze preference, hippus, nystagmus or roving eye movements V: Facial sensation reportedly grossly intact to light touch bilaterally VII: Facial movements appear without evidence of asymmetry VIII: Hearing appears grossly intact to loud voice bilaterally IX/X: Palate appears to elevate symmetrically XI: Shoulder shrug appears symmetric/ grossly intact bilaterally XII: Tongue protrudes midline without evidence of biting Motor exam: Strength appears grossly intact/symmetric in all extremities Sensory: Sensation changes are reportedly improved but persistent in LUE -hand Coordination: Finger to nose and heel to brown were intact. No apparent evidence of dysmetria or dysdiadochokinesia Reflexes: Deferred Gait: Deferred Results & Data Vital Signs (Past 12 Hours) Vital Signs Temp Pulse Pulse Resp BP BP Pulse Ox 07/28/23 12:00 37.0 C 85 20 162/102 H 95 07/28/23 09:38 07/28/23 09:09 36.6 C 76 17 145/97 H 93 07/28/23 08:49 75 18 158/108 H 94 07/28/23 08:29 79 07/28/23 07:01 78 18 158/108 H 95 07/28/23 06:30 79 14 154/104 H 93 07/28/23 06:00 74 15 145/97 H 92 07/28/23 06:00 77 17 154/104 H 94 07/28/23 05:30 79 16 144/100 H 95 07/28/23 05:00 73 14 149/104 H 95 07/28/23 04:35 77 07/28/23 04:30 78 16 150/107 H 94 07/28/23 04:00 81 20 154/105 H 95 07/28/23 03:30 78 145/102 H 07/28/23 03:30 82 20 145/102 H 94 07/28/23 03:00 78 16 156/109 H 94 07/28/23 02:54 77 13 154/108 H 93 07/28/23 02:42 98 H 162/107 H 07/28/23 02:30 102 H 12 162/107 H 94 07/28/23 02:00 100 H 12 156/111 H 93 07/28/23 02:00 36.9 C 95 H 20 172/105 H 94 07/28/23 01:59 100 H 15 165/122 H 93 07/28/23 01:36 99 H 20 173/117 H 94 07/28/23 01:30 101 H 16 176/106 H 91 07/28/23 01:23 94 H 19 161/120 H 93 07/28/23 01:23 94 H 17 161/120 H 93 07/28/23 01:00 92 H 16 168/115 H 92 07/28/23 00:35 93 H 07/28/23 00:30 92 H 17 169/115 H 90 O2 Del Method 07/28/23 12:00 Room Air 07/28/23 09:38 Room Air 07/28/23 09:09 Room Air 07/28/23 08:49 Room Air 07/28/23 08:29 07/28/23 07:01 Room Air 07/28/23 06:30 Room Air 07/28/23 06:00 Room Air 07/28/23 06:00 Room Air 07/28/23 05:30 Room Air 07/28/23 05:00 Room Air 07/28/23 04:35 07/28/23 04:30 Room Air 07/28/23 04:00 Room Air 07/28/23 03:30 07/28/23 03:30 Room Air 07/28/23 03:00 Room Air 07/28/23 02:54 Room Air 07/28/23 02:42 07/28/23 02:30 Room Air 07/28/23 02:00 Room Air 07/28/23 02:00 Room Air 07/28/23 01:59 Room Air 07/28/23 01:36 Room Air 07/28/23 01:30 Room Air 07/28/23 01:23 Room Air 07/28/23 01:23 Room Air 07/28/23 01:00 Room Air 07/28/23 00:35 07/28/23 00:30 Room Air Laboratory Results Abnormal lab results 07/27/23 07/28/23 Range/Units 20:48 10:20 RBC 4.25 L (4.70-6.10) M/uL Hct 40.0 L (42.0-52.0) % MPV 9.2 L (9.4-12.4) fL Glucose 122 H 112 H (70-99(Fasting)) mg/dl Magnesium 1.4 L (1.7-2.4) mg/dl AST 87 H 68 H (13-39) U/L ALT 120 H 103 H (7-52) U/L Total Creatine Kinase 682 H (30-223) U/L Diagnostic Findings Chest CTA 07/27/23 22:34 Exam(s): CTA CHEST IV Amt: OPTIRAY [id number] EXAM: CT Angiography Chest With Intravenous Contrast CLINICAL HISTORY: Reason for exam: PE. TECHNIQUE: Axial computed tomographic angiography images of the chest with intravenous contrast. CTDI is 28.14 mGy and DLP is 959.74 mGy-cm. Automated exposure control was utilized for the study. A dose lowering technique was utilized adhering to the principles of ALARA. 3D and MIP reconstructed images were created and reviewed. COMPARISON: Chest x-ray 07/27/2023. FINDINGS: Pulmonary arteries: No pulmonary embolism. Aorta: No thoracic aortic aneurysm or dissection. Lungs: No consolidation. Minimal dependent atelectasis. Pleural space: No pleural effusion. No pneumothorax. Heart: No cardiomegaly. No pericardial effusion. No evidence of RV dysfunction. Bones/joints: No acute fracture. Soft tissues: Unremarkable. Lymph nodes: Unremarkable. No enlarged lymph nodes. Abdomen: Fatty liver. IMPRESSION: No pulmonary embolism. No aortic aneurysm or dissection. Minimal dependent atelectasis. Fatty liver. Electronically signed by: Иван Mcmahan M.D. 07/28/23 01:01 AM Chest X-Ray 07/27/23 22:34 XR chest 1V portable HISTORY: 53 years-old Male cp acute chest pain COMPARISON: 07/27/2023 TECHNIQUE: AP view of the chest FINDINGS: Cardiac silhouette is enlarged. No pneumothorax, pleural effusion, airspace consolidation or pulmonary edema. Bones of the chest appear grossly intact. IMPRESSION: No acute process. ACT 112: Negative or not required by law. The above report was generated using voice recognition software. It may contain grammatical, syntax or spelling errors. Electronically signed by: Ashish Izquierdo M.D. 07/28/2023 7:09 AM Medications Administered Home Medications Medication Instructions Recorded Confirmed Last Taken allopurinol 100 mg tablet 200 mg PO HS 1207/28/23 07/26/23 lisinopril 20 mg tablet 20 mg PO HS 03/24/20 07/28/23 07/26/23 simvastatin 20 mg tablet 20 mg PO HS 03/24/20 07/28/23 07/26/23 amlodipine 5 mg tablet 5 mg PO HS 07/28/23 07/28/23 07/26/23 colchicine 0.6 mg tablet 1.2 mg PO DIRECTED PRN GOUT 07/28/23 07/28/23 Unknow n FLARE UPS escitalopram oxalate 10 mg tablet 10 mg PO QAM 07/28/23 07/28/23 07/27/23 hydroxyzine HCl 25 mg tablet 25 mg PO TID PRN Anxiety 07/28/23 07/28/23 Unknown qspdbpoz-rbh-RG 0.4 mg-calcium 162 1 tab PO DAILY 07/28/23 07/28/23 07/27/23 mg-iron 18 yy-xyrgxwq-egmhkb tablet Active Medications Generic Name Dose Route Start Last Admin Trade Name Selina PRN Reason Stop Dose Admin Escitalopram Oxalate 10 mg 07/28/23 10:00 07/28/23 10:34 Escitalopram Oxalate 10 Mg Tab PO 08/27/23 09:59 10 mg QAM LEONARD Administration Sodium Chloride 1,000 mls @ 75 mls/hr 07/28/23 10:00 07/28/23 10:09 Nss IV 07/28/23 23:19 75 mls/hr .[id number] LEONARD Administration Lisinopril 20 mg 07/28/23 10:15 07/28/23 10:33 Lisinopril 20 Mg Tab PO 08/27/23 10:14 20 mg BID LEONARD Administration
--- NOTE | 2023-07-28 14:05 | Ultrasound Report ---
BILATERAL CAROTID DOPPLER STUDY HISTORY: Transient ischemic attack. COMPARISON: None. TECHNIQUE: Real-time, grayscale, and color Doppler sonography of the carotid arteries was performed. Imaging reviewed in the transverse and longitudinal planes. All measurements were calculated based on NASCET criteria. FINDINGS: Antegrade flow is seen in the bilateral vertebral arteries. No significant calcified plaque within the carotid arteries. The peak systolic velocity within the right ICA is 64 cm/s. The right systolic ratio is 1.0. The peak systolic velocity within the left ICA is 67 cm/s. The left systolic ratio is 1.1. IMPRESSION: No hemodynamically significant stenosis seen within the carotid arteries. ACT 112: Negative or not required by law. Electronically signed by: Bryon Carrasco M.D. 07/28/2023 2:04 PM
[2023-07-28] MEDS: hydroCHLOROthiazide 25 MG TAB PO SCH (14:55)
--- NOTE | 2023-07-28 15:14 | CT Scan Report ---
CT head/brain wo con CLINICAL HISTORY: 53 years-old Male with headache, HTN; facial numbness. Acute headache with facial numbness TECHNIQUE: Multiple axial CT images of the head were obtained without contrast. A dose lowering tech nique was utilized adhering to the principles of ALARA. CT DOSE: 625.8 mGy.cm COMPARISON: None. FINDINGS: No acute intracranial hemorrhage, midline shift, intracranial mass, hydrocephalus, territorial ischem ia or abnormal extra-axial collection. The calvarium is intact. The paranasal sinuses, mastoid air cells, and middle ear cavities are clear . IMPRESSION: No acute intracranial abnormality. ACT 112: Negative or not required by law. The above report was generated using voice recognition software. It may contain grammatical, syntax o r spelling errors. Electronically signed by: Ashish Izquierdo M.D. 07/28/2023 3:13 PM
[2023-07-28] MEDS: CLOPIDOGREL BISULFATE 75 MG TAB PO SCH (17:45)
[2023-07-28] MEDS: ASPIRIN 81 MG ECTAB PO SCH (17:45)
[2023-07-28] MEDS: ACETAMINOPHEN 325 MG TAB PO PRN (17:48)
[2023-07-28] MEDS: OPTIRAY 320 125ml IV ONE (19:52)
--- NOTE | 2023-07-28 20:28 | CT Scan Report ---
Exam(s): CTA NECK With Contrast IV Amt: 118 ml opti 320 EXAM: CT Angiography Neck With Intravenous Contrast CLINICAL HISTORY: Reason for exam: stroke like symptoms. TECHNIQUE: Routine carotid CT angiography protocol was performed with intravenous contrast. NASCET criteria using the distal ICAs for comparison were used for evaluation of stenoses. CTDI is 22 mGy and DLP is 464 mGy-cm. Automated exposure control was utilized for the study. A dose lowering technique was utilized adhering to the principles of ALARA. MIP reconstructed images were created and reviewed. CONTRAST: Patient received 118 ml opti 320 of IV contrast COMPARISON: Carotid Doppler ultrasound done earlier. FINDINGS: Right common carotid artery: Patent. Right internal carotid artery: Patent. Right vertebral artery: Patent. Left common carotid artery: Patent. Left internal carotid artery: Patent. Left vertebral artery: Patent. Codominant. Other: Mild atherosclerosis left carotid bifurcation, without significant stenosis. IMPRESSION: 1. No dissection, occlusion, or significant stenosis. CAROTID STENOSIS REFERENCE USING NASCET CRITERIA: % ICA stenosis = (1 - narrowest ICA diameter/diameter of distal cervical ICA) x 100. Mild - <50% stenosis. Moderate - 50-69% stenosis. Severe - 70-94% stenosis. Near occlusion - 95-99% stenosis. Occluded - 100% stenosis. Electronically signed by: Zoya Riggs M.D. 07/28/23 20:27 PM
--- NOTE | 2023-07-28 20:28 | CT Scan Report ---
Exam(s): CTA HEAD With Contrast IV Amt: 118 ml opti 320 EXAM: CT Angiography Head With Intravenous Contrast CLINICAL HISTORY: Reason for exam: stroke like symptoms. TECHNIQUE: Axial computed tomographic angiography images of the head with intravenous contrast. CTDI is 21 mGy and DLP is 464 mGy-cm. Automated exposure control was utilized for the study. A dose lowering technique was utilized adhering to the principles of ALARA. MIP reconstructed images were created and reviewed. CONTRAST: Patient received 118 ml opti 320 of IV contrast COMPARISON: None. FINDINGS: Right internal carotid artery: Patent. Right anterior cerebral artery: Patent. Right middle cerebral artery: Patent. Right posterior cerebral artery: Patent. Right vertebral artery: Patent. Left internal carotid artery: Patent. Left anterior cerebral artery: Patent. Left middle cerebral artery: Patent. Left posterior cerebral artery: Patent. Left vertebral artery: Patent. Basilar artery: Patent. Other: IMPRESSION: 1. No aneurysm or large vessel occlusion. Electronically signed by: Zoya Riggs M.D. 07/28/23 20:26 PM
[2023-07-28] MEDS ORDERED: lisinopril 20 MG TAB PO SCH (21:00)
[2023-07-28] MEDS ORDERED: SIMVASTATIN 20 MG TAB PO SCH (21:00)
[2023-07-28] MEDS: allopurinoL 100 MG TAB PO SCH (21:01)
[2023-07-28] MEDS: ATORVASTATIN 40 MG TAB PO SCH (21:01)
[2023-07-28] MEDS: amLODIPine BESYLATE 5 MG TAB PO SCH (21:01)
--- NOTE | 2023-07-28 23:38 | Magnetic Resonance Report ---
Exam(s): MRI HEAD Without Contrast EXAM: MR Head Without Intravenous Contrast CLINICAL HISTORY: Concern for CVA. TECHNIQUE: Magnetic resonance images of the head/brain without intravenous contrast in multiple planes. COMPARISON: CT head 07/28/2023 FINDINGS: Brain: No acute infarct. No intracranial hemorrhage, mass-effect or midline shift. Mild periventricular white matter T2/flair signal abnormalities are most consistent with chronic microangiopathy. Ventricles: Unremarkable. No ventriculomegaly. Bones/joints: Unremarkable. No acute fracture. Sinuses: Unremarkable as visualized. No acute sinusitis. Mastoid air cells: Unremarkable as visualized. No mastoid effusion. Orbits: Unremarkable as visualized. IMPRESSION: No acute findings in the head/brain. Electronically signed by: Sangeetha James MD 07/28/23 23:38 PM
[2023-07-29 02:30] LABS: Basophils # (auto) 0.06 K/uL (0.00-0.20); Basophils % (auto) 1.4 %; Eosinophils # (auto) 0.23 K/uL (0.00-0.50); Eosinophils % (auto) 5.3 %; Hematocrit (blood only) 42.5 % (42.0-52.0); Hemoglobin 14.6 g/dl (14.0-18.0); Immature Granulocytes # (auto) 0.01 K/uL (0.01-0.20); Immature Granulocytes % (auto) 0.2 %; Lymphocytes # (auto) 1.73 K/uL (1.20-3.40); Lymphocytes % (auto) 39.8 %; Mean Corpuscular Hgb Conc 34.4 g/dL (32.0-36.0); Mean Corpuscular Volume 95.9 fL (80.0-100.0); Mean Platelet Volume 9.3 fL (9.4-12.4); Monocytes # (auto) 0.67 K/uL (0.11-0.59); Monocytes % (auto) 15.4 %; Neutrophils # (auto) 1.65 K/uL (1.40-6.50); Neutrophils % (auto) 37.9 %; Platelet Count 204 K/uL (130-400); RDW Coefficient of Variation 12.6 % (11.5-14.5); RDW Standard Deviation 44.8 fL (36.4-46.3); Red Blood Count 4.43 M/uL (4.70-6.10); White Blood Count 4.35 K/ul (4.8-10.8)
[2023-07-29 02:49] LABS: BUN Creatinine Ratio 16.2 (10-20); Creatinine Clr Calc Pharmacy 93.3 ml/min; Est GFR (Non-African American) 75.9 ml/min; Magnesium 2.1 mg/dl (1.7-2.4); Phosphorus 3.8 mg/dl (2.5-4.9); Potassium 3.8 mmol/L (3.5-5.1)
[2023-07-29 02:55] LABS: Troponin I High Sensitivity 6.8 pg/ml (0-20)
[2023-07-29 07:01] LABS: Estimated Average Glucose 117 mg/dl; Hemoglobin A1C 5.7 % (4.5-5.6)
[2023-07-29] MEDS: CEROVITE ADV FORMULA TAB PO SCH (08:14)
--- NOTE | 2023-07-29 10:11 | Cardiology Progress Note ---
Date of Service July 29, 2023 Assessment & Plan (1) Hypertensive urgency: (2) Headache: (3) Facial tingling: (4) Hypomagnesemia: Plan Patient admitted with uncontrolled hypertension associated with headache, facial numbness/tingling and hypomagnesia. EKG without acute changes - NSR with RBBB. stable from 2021 EKG. HS troponin negative x2. He was treated with home dose lisinopril 20 mg and amlodipine 5 mg with intermittent IV hydralazine and IV labetalol. It seems IV hydralazine made his facial flushing worse. Increase lisinopril to 20 mg BID. Continue amlodipine 5 mg and titrate as needed. Would avoid additional IV medications. Transition to oral medications. Head CT ordered. Carotid duplex ordered. Echo completed this morning and results pending. IV magnesium supplemented. Low on arrival. Improved today. 07/29/23: Symptoms improved. BP improved. Brain MRI unremarkable. Head/Neck CT unremarkable Appreciate neuro input. Recommendations for DAPT for 3 weeks with ASA and Plavix and ZIO monitor to be placed after discharge. Continue atorvastatin on discharge. BP improved this morning. Continue lisinopril 20 mg BID (increased from 20 mg), amlodipine 5 mg (Increased from 2.5 mg) and HCTZ 25 mg on discharge. Echo with preserved LVEF, borderline dilated RV. Recommend sleep med evaluation upon discharge as well. Stable for discharge from cardiac perspective. Case discussed with Dr. Torres. I spent a total of 30 minutes on the date of service in preparation, delivery, and documentation of the care provided to this patient, excluding any time spent in the performance of separately billed services. Kassandra Gage PA-C Department of Cardiology, [facility] This chart was completed in part utilizing Speech Voice Recognition Software. Grammatical errors, random word insertions, pronoun errors, and incomplete sentences are an occasional consequence of this system due to software limitations, ambient noise, and hardware issues. Any formal questions or concerns about the content, text, or information contained within the body of this dictation should be directly addressed to the provider for clarification. Admission and Anticipated Discharge Date Admission Date: July 28, 2023 Supervising Physician Co-Signing Physician Notes I have reviewed the advance practitioner's documentation, and I agree with, and take responsibility for the plan of care. I have personally seen and performed physical examination on this patient. 53-year-old male admitted with hypertensive urgency and strokelike symptoms. Neuroimaging without evidence of CVA. Blood pressure improved with blood pressure adjustment. Patient feeling well this morning. Anxious for discharge. PE: VSS. General: NAD, awake alert and oriented x 3. Heart: Regular rhythm, normal S1-S2. No murmur. Lungs: Clear bilateral, no rales, rhonchi. Extremities: No edema. A/P: 53-year-old male presents with hypertensive urgency and strokelike symptoms. No evidence of CVA per neuroimaging. Blood pressure improved. Continue lisinopril to 20 mg twice daily, hydrochlorothiazide (added 07/28/2023), and amlodipine 5 mg daily. Continue statin therapy. Outpatient sleep medicine evaluation. Cardiology follow-up in 2 to 4 weeks. Subjective Patient resting in chair. Feeling well. No recurrent tingling/numbness of the face or upper extremities. No weakness. Dull headache persists, but much improved. BP trending down. Tolerating medications. No dizziness or lightheadedness. No chest pain or SOB. Review of Systems Review of Systems: All systems reviewed & are unremarkable except as noted in HPI & below Physical Exam Constitutional: WD/WN, vitals as above well developed; no acute distress Neck: trachea midline, no thyromegaly Respiratory: normal respiratory effort, lungs clear to auscultation Cardiovascular: Rate/Rhythm: regular rate and regular rhythm Heart Sounds: no murmur Vessels: no JVD Extremities: no edema Gastrointestinal (Abdomen): normal bowel sounds, soft, nontender, no hepatosplenomegaly Skin: no rashes, warm and dry Neurologic: PERRL, EOMI, accommodation nl, no face palsy, no dysarthria Psychiatric: A+Ox3, euthymic affect Results & Data Vital Signs (Past 12 Hours) Vital Signs Temp Pulse Resp BP Pulse Ox 07/29/23 08:26 78 15 94 07/29/23 08:26 125/87 07/29/23 07:00 62 12 07/29/23 06:30 63 11 L 07/29/23 06:00 65 13 07/29/23 05:30 64 11 L 07/29/23 05:00 67 16 07/29/23 04:30 64 15 07/29/23 04:00 61 14 07/29/23 04:00 132/87 07/29/23 03:30 61 10 L 07/29/23 03:00 80 15 07/29/23 02:54 37.0 C 07/29/23 02:45 64 14 07/29/23 02:30 63 16 07/29/23 02:15 63 15 07/29/23 02:00 63 14 07/29/23 01:45 63 14 07/29/23 01:30 62 13 07/29/23 01:15 62 18 07/29/23 01:00 62 13 07/29/23 00:45 60 16 07/29/23 00:30 67 23 07/29/23 00:15 61 14 07/29/23 00:00 37.0 C 07/29/23 00:00 142/95 H 07/29/23 00:00 78 22 07/29/23 00:00 66 07/28/23 23:45 66 16 07/28/23 23:30 65 18 07/28/23 23:15 67 21 07/28/23 23:06 66 17 96 07/28/23 23:05 143/109 H 07/28/23 22:20 67 16 07/28/23 22:15 67 13 Laboratory Results Cardiac Enzymes 07/28/23 07/28/23 07/28/23 Range/Units 10:20 14:15 19:58 AST 68 H (13-39) U/L Troponin I High Sens 8.0 6.3 (0-20) pg/ml 07/29/23 Range/Units 01:47 AST (13-39) U/L Troponin I High Sens 6.8 (0-20) pg/ml Lipids 07/29/23 Range/Units 01:47 Triglycerides 72 (0-150) mg/dl Cholesterol 145 (0-200) mg/dl HDL Cholesterol 73 mg/dl Cholesterol/HDL Ratio 2.0 (0-5) CBC 07/29/23 Range/Units 01:47 WBC 4.35 L (4.8-10.8) K/ul RBC 4.43 L (4.70-6.10) M/uL Hgb 14.6 (14.0-18.0) g/dl Hct 42.5 (42.0-52.0) % Plt Count 204 (130-400) K/uL Neut # (Auto) 1.65 (1.40-6.50) K/uL Lymph # (Auto) 1.73 (1.20-3.40) K/uL Whitley # (Auto) 0.67 H (0.11-0.59) K/uL Eos # (Auto) 0.23 (0.00-0.50) K/uL Baso # (Auto) 0.06 (0.00-0.20) K/uL Comprehensive Metabolic Panel 07/28/23 07/29/23 Range/Units 10:20 01:47 Sodium 136 136 (136-145) mmol/L Potassium 3.8 3.8 (3.5-5.1) mmol/L Chloride 104 103 (98-107) mmol/L Carbon Dioxide 24 24 (21-32) mmol/L BUN 12 18 (6-23) mg/dl Creatinine 0.92 1.11 (0.6-1.4) mg/dl Glucose 112 H 101 H (70-99(Fasting)) mg/dl Calcium 9.4 9.0 (8.6-10.3) mg/dl AST 68 H (13-39) U/L ALT 103 H (7-52) U/L Alkaline Phosphatase 55 (34-104) U/L Total Protein 7.7 (6.0-8.3) gm/dl Albumin 4.5 (3.4-5.0) gm/dl Intake and Output 07/28/23 07/29/23 07/29/23 22:59 06:59 14:59 Intake Total 1000 / 1550 Output Total 700 / 1500 Balance 300 / 50 Intake: IV 1000 / 1000 Sodium Chloride 0.9% 1,000 ml @ 1000 / 1000 75 mls/hr IV .[id number] [facility] Rx#: [id number] Output: Urine 700 / 1500 Diagnostic Findings Telemetry reviewed: NSR, no arrhythmias Echo reviewed from 07/28/23: LV systolic function is normal. LVEF 55-60% Mild concentric LVH RV is borderline dilated RV systolic function is normal No interatrial shunt with injection of contrast. No pulm hypertension No significant valvular disease Chest CTA 07/27/23 22:34 IMPRESSION: No pulmonary embolism. No aortic aneurysm or dissection. Minimal dependent atelectasis. Fatty liver. Chest X-Ray 07/27/23 22:34 IMPRESSION: No acute process. Carotid Doppler Study 07/28/23 09:38 IMPRESSION: No hemodynamically significant stenosis seen within the carotid arteries. Head CT 07/28/23 11:57 IMPRESSION: No acute intracranial abnormality. Brain MRI 07/28/23 12:48 IMPRESSION: No acute findings in the head/brain. Head CTA 07/28/23 15:30 1. No aneurysm or large vessel occlusion. Neck CTA 07/28/23 15:30 IMPRESSION: 1. No dissection, occlusion, or significant stenosis. Medications Administered Current Inpatient Medications Acetaminophen (Acetaminophen 325 Mg Tab) 650 mg PO Q4H PRN PRN Reason: Pain or Fever Stop: 08/27/23 09:37 Last Admin: 07/28/23 17:48 Dose: 650 mg Allopurinol (Allopurinol 100 Mg Tab) 200 mg PO [facility] Stop: 08/27/23 20:59 Last Admin: 07/28/23 21:01 Dose: 200 mg Amlodipine Besylate (Amlodipine Besylate 5 Mg Tab) 5 mg PO [facility] Stop: 08/27/23 20:59 Last Admin: 07/28/23 21:01 Dose: 5 mg Aspirin (Aspirin 81 Mg Ectab) 81 mg PO [facility] Stop: 08/27/23 15:44 Last Admin: 07/29/23 08:14 Dose: 81 mg Atorvastatin Calcium (Atorvastatin 40 Mg Tab) 40 mg PO [facility] Stop: 08/27/23 20:59 Last Admin: 07/28/23 21:01 Dose: 40 mg Clopidogrel Bisulfate (Clopidogrel Bisulfate 75 Mg Tab) 75 mg PO [facility] Stop: 08/27/23 15:44 Last Admin: 07/29/23 08:14 Dose: 75 mg Escitalopram Oxalate (Escitalopram Oxalate 10 Mg Tab) 10 mg PO [facility] Stop: 08/27/23 09:59 Last Admin: 07/29/23 08:14 Dose: 10 mg Hydrochlorothiazide (Hydrochlorothiazide 25 Mg Tab) 25 mg PO [facility] Stop: 08/27/23 14:29 Last Admin: 07/29/23 08:15 Dose: 25 mg Hydroxyzine HCl (Hydroxyzine Hcl 25 Mg Tab) 25 mg PO TID PRN PRN Reason: Anxiety Stop: 08/27/23 09:37 Labetalol HCl (Labetalol Hcl Iv 5 Mg/Ml 20ml) 10 mg IV Q4H PRN PRN Reason: Hypertension Stop: 08/27/23 09:37 Lisinopril (Lisinopril 20 Mg Tab) 20 mg PO BID [facility] Stop: 08/27/23 10:14 Last Admin: 07/29/23 08:14 Dose: 20 mg Miscellaneous Information (Pharmacist Discharge Med Rec Consult) 1 each N/A UD PRN PRN Reason: Consult Stop: 08/27/23 09:37 Multivitamins/Minerals (Cerovite Adv Formula Tab) 1 tab PO DAILY [facility] Stop: 08/28/23 08:59 Last Admin: 07/29/23 08:14 Dose: 1 tab Nitroglycerin (Nitroglycerin Sl 0.4 Mg/Tab Tab) 0.4 mg SL Q5M PRN PRN Reason: Chest Pain Stop: 08/27/23 09:37
--- NOTE | 2023-07-29 10:26 | Discharge Summary ---
Date of Service July 29, 2023 Admission HPI Per Admitting Provider 53-year-old male with past med history significant for gout, hypertension, nonalcoholic fatty liver disease, poor short-term memory, generalized anxiety disorder presents with facial numbness and upper extremity numbness since yesterday 4 PM. He checked his blood pressure it was high so he came to the ER. Currently he has only minimal numbness in the hands. In the ER after antihypertensive medications tried to discharge but patient complained of facial flushing so we called for admission. Yesterday felt short of breath. Denies any chest pain. No headache. No blurred vision. No earache or runny nose. No sore throat. No cough. No difficulty swallowing. No fevers. No nausea. No abdominal pain. Normal bowel and bladder movements. Ambulating okay. Resting comfortably and hemodynamically stable. The patient states his facial flushing and feeling of hotness improving but still has some. Past medical history. As mentioned above Past surgical history. Carpal tunnel surgery in the left hand. Colonoscopy. Shoulder arthroscopy. Social history. . No smoking. Alcohol sixpack on weekends. No drug use. Family history. Father had heart disorder. Had COVID. Spine infection. S troke. Admission Exam Per Admitting Provider General- Not in distress Head- atraumatic Eyes- PERRL, EOMI. ENT- oropharynx clear Neck- supple, no JVD. Lungs- clear to auscultation no wheezing or crackles. Heart- regular rhythm; no murmur, no gallop. Abdomen- normal bowel sounds, soft, nontender, no distension Extremities- no pretibial edema, no erythema seen. Neuro- alert, oriented PERRL, EOMI; no facial palsy; no dysarthria; motor 5/5 bilaterally; no pronator drift, sensations intact. Position sense intact Skin- warm & dry Principal Diagnosis HTN urgency, poss. TIA Discharge Exam General- WD/WN M in NAD Head- atraumatic Eyes- PERRL, EOMI. ENT- oropharynx clear Neck- supple, no JVD. Lungs- clear to auscultation no wheezing or crackles. Heart- regular rhythm; no murmur, no gallop. Abdomen- normal bowel sounds, soft, nontender, no distension Extremities- no pretibial edema, no erythema seen. Neuro- alert, oriented PERRL, EOMI; no facial palsy; no dysarthria; moves extremities, no weakness noted Skin- warm & dry Discharge Data Allergies Allergy/AdvReac Type Severity Reaction Status Date / Time No Known Allergies Allergy Verified 07/28/23 00:04 Consultations 07/28/23 03:45 ED Decision to Admit Stat 07/28/23 09:38 Consult Cardiology Routine Consult Neurology Routine Ordered Studies 07/27/23 22:34 CT angio chest PE protocol Stat FINDINGS: Pulmonary arteries: No pulmonary embolism. Aorta: No thoracic aortic aneurysm or dissection. Lungs: No consolidation. Minimal dependent atelectasis. Pleural space: No pleural effusion. No pneumothorax. Heart: No cardiomegaly. No pericardial effusion. No evidence of RV dysfunction. Bones/joints: No acute fracture. Soft tissues: Unremarkable. Lymph nodes: Unremarkable. No enlarged lymph nodes. Abdomen: Fatty liver. IMPRESSION: No pulmonary embolism. No aortic aneurysm or dissection. Minimal dependent atelectasis. Fatty liver. 07/28/23 09:38 US carotid doppler BI Routine FINDINGS: Antegrade flow is seen in the bilateral vertebral arteries. No significant calcified plaque within the carotid arteries. The peak systolic velocity within the right ICA is 64 cm/s. The right systolic ratio is 1.0. The peak systolic velocity within the left ICA is 67 cm/s. The left systolic ratio is 1.1. IMPRESSION: No hemodynamically significant stenosis seen within the carotid arteries. 07/28/23 11:[address] [CT head/brain wo con] Routine FINDINGS: No acute intracranial hemorrhage, midline shift, intracranial mass, hydrocephalus, territorial ischemia or abnormal extra-axial collection. The calvarium is intact. The paranasal sinuses, mastoid air cells, and middle ear cavities are clear. IMPRESSION: No acute intracranial abnormality. 07/28/23 12:48 MR brain wo con Urgent FINDINGS: Brain: No acute infarct. No intracranial hemorrhage, mass-effect or midline shift. Mild periventricular white matter T2/flair signal abnormalities are most consistent with chronic microangiopathy. Ventricles: Unremarkable. No ventriculomegaly. Bones/joints: Unremarkable. No acute fracture. Sinuses: Unremarkable as visualized. No acute sinusitis. Mastoid air cells: Unremarkable as visualized. No mastoid effusion. Orbits: Unremarkable as visualized. IMPRESSION: No acute findings in the head/brain. 04/29/24 15:30 CTA head w con [CT angio head w con] Routine FINDINGS: Right internal carotid artery: Patent. Right anterior cerebral artery: Patent. Right middle cerebral artery: Patent. Right posterior cerebral artery: Patent. Right vertebral artery: Patent. Left internal carotid artery: Patent. Left anterior cerebral artery: Patent. Left middle cerebral artery: Patent. Left posterior cerebral artery: Patent. Left vertebral artery: Patent. Basilar artery: Patent. Other: IMPRESSION: 1. No aneurysm or large vessel occlusion. CTA neck with con [CT angio neck with con] Routine FINDINGS: Right common carotid artery: Patent. Right internal carotid artery: Patent. Right vertebral artery: Patent. Left common carotid artery: Patent. Left internal carotid artery: Patent. Left vertebral artery: Patent. Codominant. Other: Mild atherosclerosis left carotid bifurcation, without significant stenosis. IMPRESSION: 1. No dissection, occlusion, or significant stenosis. Hospital Course (1) TIA (transient ischemic attack): 53-year-old male with past med history significant for gout, hypertension, nonalcoholic fatty liver disease, poor short-term memory, generalized anxiety disorder presents with facial numbness and upper extremity numbness since yesterday 4 PM. He checked his blood pressure it was high so he came to the ER. Currently he has only minimal numbness in the hands. In the ER after antihypertensive medications tried to discharge but patient complained of facial flushing so we called for admission. Yesterday felt short of breath. Denies any chest pain. No headache. No blurred vision. No earache or runny nose. No sore throat. No cough. No difficulty swallowing. No fevers. No nausea. No abdominal pain. Normal bowel and bladder movements. Ambulating okay. Resting comfortably and hemodynamically stable. The patient states his facial flushing and feeling of hotness improving but still has some. Questionable TIA Presents with numbness in the face and upper extremities Possible from hypertensive urgency Possible TIA CT head, carotid Doppler, CTA head and neck and brain obtained and negative for CVA Neuro consulted for further recommendations - dual antiplatelet therapy for 3 weeks, zio patch, outpt polysomnography Hypertensive urgency Continue home amlodipine 5 mg daily and lisinopril dose increased to 20 mg bid HCTZ 25 mg daily also added Echo obtained -LV systolic function is normal. EF 50 to 60%. There is mild concentric LVH. RV is borderline dilated. RV systolic function is normal as assessed by tricuspid annular plane systolic excursion TAPSE. Injection of contrast documented no interatrial shunt. There is mild tricuspid regurg. Doppler findings do not suggest pulmonary hypertension. Pulse-wave TDI of the anterior and posterior mitral annulus demonstrates abnormal LV relaxation. Cardiology consulted - recommendations as above Facial flushing and Hotness Questionable from IV hydralazine resolved Gout On allopurinol Hyperlipidemia On statin General anxiety disorder On Lexapro Total Time Total Time Spent Total Time Spent (In Minutes): 40 Discharge Plan Discharge Items Patient Disposition: Home - Self-Care Reason For Visit: HTN URGENCY, TIA? Discharge Diagnosis: HTN urgency, poss. TIA Condition on Discharge: Good Activity: Per Instructions section Non-emergency contact: Primary Care Provider Call non-emergency contact if: you have any medication questions and your symptoms worsen Follow-up/Referrals: Salas Tobias MD [Primary Care Provider] - (Date & Time 08/01/2023 10:40 AM Provider Salas Tobias MD Department [facility] ) Diet: Heart Healthy and Low Sodium (2gm) Addtl Attending Provider Instructions: Follow up with your primary care physician, and cardiology. Take aspirin and plavix for 3 weeks, then only take aspirin. Your cholesterol medication - simvastatin 20 mg was changed to atorvastatin 40 mg daily. Take amlodipine 5 mg daily and increase lisinopril from 20 mg daily to twice a day. You were also started on hydrochlorothiazide 25 mg daily. You will need zio patch - to monitor your heart for abnormal rhythm- your primary care doctor / adolescent medicine specialist will set this up for you. It is also recommended that you have a sleep study done. Monitor your blood pressure at home if you are able to and record your numbers - discuss your numbers with your doctor so that your medications can be further adjusted as needed. Pending Studies at Discharge: No Stand-Alone Forms: My [employer], Smoking Cessation Medications and DC Order Prescriptions: New clopidogrel 75 mg Tablet 75 mg PO QAM 21 Days Qty: 21 0RF atorvastatin 40 mg Tablet 40 mg PO HS Qty: 30 0RF aspirin 81 mg Tablet,Delayed Release (Dr/Ec) 81 mg PO QAM Qty: 30 0RF lisinopril 20 mg Tablet 20 mg PO BID Qty: 60 0RF hydrochlorothiazide 25 mg Tablet 25 mg PO QAM Qty: 60 0RF Continued allopurinol 100 mg tablet 200 mg PO HS amlodipine 5 mg tablet 5 mg PO HS hydroxyzine HCl 25 mg tablet 25 mg PO TID PRN (Reason: Anxiety) colchicine 0.6 mg Tablet 1.2 mg PO DIRECTED PRN (Reason: GOUT FLARE UPS) Rx Instructions: TAKE 2 TABS AT ONSET OF ATTACK, THEN REPEAT ONE HOUR LATER IF NEEDED. escitalopram oxalate 10 mg tablet 10 mg PO QAM Centrum 0.4-162-18 mg Tablet 1 tab PO DAILY Discontinued lisinopril 20 mg tablet 20 mg PO HS simvastatin 20 mg tablet 20 mg PO HS Discharge Orders: Discharge Order (Routine); Ordered 07/29/23 Ordered By: Rickie Landa Admission Data Admit Date/Time: 07/28/23 09:21 Attending Provider: Rickie Landa Admit Provider: Bora Herbert Primary Care Provider: Salas Tobias Other Providers: Bora Herbert; Kenji Ng; Ashley Hernandez; Sumeet Eubanks; Ashley Rios; Dequan Ford; Porfirio Mccarty; Taurus Alejandro; Aaron Lynn; Mackenzie Cerna; Gonzales Davenport; Luis Antonio Vasquez; Andres Zhang; Farzad Abel; Stefany Law; Shivani Dietz; Aaron Puente
--- NOTE | 2023-07-29 11:07 | Pharmacy Report ---
- Date of Service July 29, 2023 - Pharmacy CVA/TIA Medication Review Medications to Prevent Stroke handout has been added to the patients discharge packet. Antiplatelet(s) * aspirin 81 mg * clopidogrel 75 mg Cholesterol * High intensity statin: atorvastatin 40 mg daily DVT Prophylaxis * SCD knee Therapeutic Anticoagulation * No history of Afib/Aflutter noted Type 2 Diabetes * Patient does not have T2DM
[2023-07-29] MEDS: STROKE PATIENT DISCHARGE STA (11:11)
--- NOTE | 2023-07-31 14:53 | Pharmacy Report ---
Pharmacist Stroke Counseling - Date of Service July 31, 2023 - Scope: Pharmacy has been consulted to provide medication discharge counseling for this patient admitted with transient ischemic attack as per the Pharmacist Discharge Counseling for Stroke Patients Protocol. - Medications on Discharge: Home Medications Medication Instructions Recorded Confirmed allopurinol 100 mg tablet 200 mg PO HS 03/24/20 07/28/23 amlodipine 5 mg tablet 5 mg PO HS 07/28/23 07/28/23 colchicine 0.6 mg tablet 1.2 mg PO DIRECTED PRN GOUT 07/28/23 07/28/23 FLARE UPS escitalopram oxalate 10 mg tablet 10 mg PO QAM 07/28/23 07/28/23 hydroxyzine HCl 25 mg tablet 25 mg PO TID PRN Anxiety 07/28/23 07/28/23 [id number] 0.4 mg-calcium 162 1 tab PO DAILY 07/28/23 07/28/23 mg-iron 18 [id number] tablet New Rx's Medication Instructions Recorded aspirin 81 mg tablet,delayed 81 mg PO QAM #30 tabs 07/29/23 release atorvastatin 40 mg tablet 40 mg PO HS #30 tabs 07/29/23 clopidogrel 75 mg tablet 75 mg PO QAM 3 weeks #21 tabs 07/29/23 hydrochlorothiazide 25 mg tablet 25 mg PO QAM #60 tabs 07/29/23 lisinopril 20 mg tablet 20 mg PO BID #60 tabs 07/29/23 - Action: The above medications, specifically ones for stroke treatment/prophylaxis, have been reviewed in detail with the patient via phone call This includes indication, common adverse reactions, drug interactions, and medication administration. Medication counseling has been employed using the teach-back method to ensure understanding. - Outcome: The patient demonstrated understanding of the medications. Additional comments: Spoke over the phone with patient today- Mr Andrew said he had no questions about his new medications at all. Briefly mentioned Aspirin and Plavix therapy. Plavix is only for 21 days - he said he is aware. He said he understands potential side effects of these meds. Briefly also mentioned stopping Simvastatin and starting Atorvastatin. He said "he is all good." No questions at all. Thank you for allowing pharmacy to be involved in the care of this patient. Please call [phone] with any additional questions
== END 2023-07-29 11:31 | disposition home or self-care (01) | DRG 69 ==
LOC: ED 20:01 → 1E 07-28 08:59 → INTOOBSV 07-28 09:21 → 1E 07-28 09:21